=== PATIENT | female | born 1970 | race Caucasian/White ===

== ENCOUNTER 2016-07-18 21:26 | Emergency (ER) | payer OTHER ==
[2016-07-18] MEDS ORDERED: NORMAL SALINE 1000 ML 1,000 ML IV ONE (22:25)
[2016-07-18] MEDS ORDERED: HYDROMORPHONE HCL INJ/PF 2 MG/ML AMPULE IV ONE ×2 (22:25→23:41)
[2016-07-18] MEDS ORDERED: ONDANSETRON HCL INJ/PF 4 MG/2 ML SDV IV ONE (22:25)
--- NOTE | 2016-07-18 22:34 | ER Document Report ---
ED GI/ - General Chief Complaint: Abdominal Pain Stated Complaint: ABDOMINAL PAIN Mode of Arrival: Ambulatory Information source: Patient Notes: This is a 46-year-old female who presents with abdominal pain that began suddenly around 0930 this morning while she was at work (she is a infant lead teacher). The pain got so severe over the next few hours that she was forced to leave school at noon. She has had difficulty having a bowel movement for the past week and so at home she tried stool softeners and enemas with no relief. The pain intensified throughout the day and she began vomiting green material. She denies fevers or chills. No dysuria. She presents in significant distress secondary to diffuse abdominal pain. TRAVEL OUTSIDE OF THE [place] IN LAST 30 DAYS: No - Related Data Allergies/Adverse Reactions: No Known Allergies Allergy (Unverified 07/18/16 21:37) Past Medical History - General Information source: Patient - Social History Smoking Status: Current Every Day Smoker Frequency of alcohol use: None Drug Abuse: None Occupation: school nurse Lives with: Family Family History: Reviewed & Not Pertinent Patient has suicidal ideation: No Patient has homicidal ideation: No - Past Medical History Cardiac Medical History: Reports: Hx Hypertension Renal/ Medical History: Denies: Hx Peritoneal Dialysis Past Surgical History: Reports: Hx Hysterectomy, Hx Neurologic Surgery - For trigeminal neuralgia Review of Systems - Review of Systems Constitutional: Other - Over the past 3-4 weeks patient has had sinus infection and URI and has undergone 3 rounds of antibiotics.. denies: Chills, Fever EENT: No symptoms reported Cardiovascular: No symptoms reported. denies: Chest pain Respiratory: No symptoms reported. denies: Cough, Short of breath Gastrointestinal: See HPI Genitourinary: No symptoms reported. denies: Burning, Dysuria Musculoskeletal: Muscle pain, Other - Frequent muscle cramps today Hematologic/Lymphatic: No symptoms reported Neurological/Psychological: No symptoms reported Physical Exam - Vital signs Vitals: Temp Pulse Resp BP Pulse Ox 98.3 F 91 20 200/102 H 97 07/18/16 21:32 07/18/16 21:32 07/18/16 21:32 07/18/16 21:32 07/18/16 21:32 - Notes Notes: PHYSICAL EXAMINATION: GENERAL: Alert, conversant, morbidly obese adult female who is somewhat ill appearing and in distress secondary to abdominal pain. HEAD: Atraumatic, normocephalic. EYES: Pupils equal round and reactive to light, extraocular movements intact, sclera anicteric, conjunctiva are normal. ENT: nares patent, oropharynx clear without exudates. Moist mucous membranes. NECK: Normal range of motion, supple without lymphadenopathy LUNGS: Breath sounds clear to auscultation bilaterally and equal. No wheezes rales or rhonchi. HEART: Regular rate and rhythm without murmurs ABDOMEN: Morbidly obese. Diffuse tenderness to palpation. Large midline firm, hard mass noted to the lower abdomen. Not reducible. Bowel sounds hypoactive. EXTREMITIES: Normal range of motion, no pitting/edema NEUROLOGICAL: Cranial nerves grossly intact. No gross focal motor or sensory deficits PSYCH: anxious affect Course - Re-evaluation Re-evalutation: 07/18/16 23:00 Patient had some relief with the Dilaudid and is a bit easier to examine at this point. She is morbidly obese. She has diffuse abdominal tenderness to palpation. She has a large lower abdominal mass which is very firm. Patient and family state that this hernia is normally there but is usually soft and not as large. Family states that the area has increased in size just today, with severe pain for the past more than 10 hours. At this point I'm concerned about a possible incarcerated hernia. I have discussed the case with the surgeon induction coordination power engineer for evaluation even though labs and imagining have not yet been done. 07/18/16 23:10 Dr. Dumas evaluating patient in ER, and will discuss with anesthesia given pt 's morbid obesity and comorbities. 07/18/16 23:54 See surgery note. Plan is to transfer to tertiary care center for operative management at this time. 07/19/16 00:35 Dr. Dumas recommends dose of IV toradol to help with non-narcotic pain management. Will also give labetalol for HTN 07/19/16 00:57 Flight crew is here for transport. Patient is stable for transport. - Vital Signs Vital signs: Temp Pulse Resp BP Pulse Ox 98.3 F 91 23 H 176/98 H 92 07/18/16 21:32 07/18/16 21:32 07/19/16 00:46 07/19/16 00:46 07/19/16 00:46 - Laboratory Result Diagrams: 07/18/16 22:50 07/18/16 22:50 Laboratory results interpreted by me: 07/18/16 07/18/16 22:50 22:50 WBC 17.0 H RBC 6.34 H Hgb 16.7 H Hct 51.0 H MCH 26.3 L RDW 17.2 H Seg Neutrophils % 89.9 H Lymphocytes % 5.5 L Absolute Neutrophils 15.3 H Sodium 132.2 L Potassium 3.5 L Chloride 90 L Glucose 196 H - EKG Interpretation by Me Additional EKG results interpreted by me: 07/18/16 23:33 EKG at 2154 straight sinus rhythm with a rate of 96. There are nonspecific ST- T wave changes. No ST elevation. Discharge - Discharge Clinical Impression: Incarcerated hernia of abdominal cavity, Chronically on opiate therapy Morbid obesity Qualifiers: Obesity type: unspecified obesity type Qualified Code(s): E66.01 - Morbid ( severe) obesity due to excess calories Condition: Serious Disposition: [facility]
[2016-07-18 23:06] LABS: ABSOLUTE LYMPHOCYTES (AUTO) 0.9 10^3/uL (0.5-4.7); ABSOLUTE MONOCYTES (AUTO) 0.7 10^3/uL (0.1-1.4); ABSOLUTE NEUT (AUTO) 15.3 10^3/uL (1.7-8.2); BASOPHILS % (AUTO) 0.3 % (0-2); HEMOGLOBIN 16.7 g/dL (12.0-15.5); HGB HCT DIFFERENCE -0.9; LYMPHOCYTES % (AUTO) 5.5 % (13-45); MEAN CORPUSCULAR HEMOGLOBIN 26.3 pg (27.0-33.4); MEAN CORPUSCULAR HGB CONC 32.7 g/dL (32.0-36.0); MEAN CORPUSCULAR VOLUME 81 fl (80-97); MONOCYTES % (AUTO) 4.3 % (3-13); RED BLOOD COUNT 6.34 10^6/uL (3.72-5.28); RED CELL DISTRIBUTION WIDTH 17.2 % (11.5-14.0); SEGMENTED NEUTROPHILS % (AUTO) 89.9 % (42-78)
[2016-07-18 23:16] LABS: ALANINE AMINOTRANSFERASE 31 U/L (9-52); ALBUMIN 4.8 g/dL (3.5-5.0); ALKALINE PHOSPHATASE 98 U/L (38-126); ANION GAP 15 (5-19); ASPARTATE AMINO TRANSFERASE 21 U/L (14-36); BILIRUBIN,DIRECT 0.3 mg/dL (0.0-0.4); BILIRUBIN,TOTAL 0.9 mg/dL (0.2-1.3); BLOOD UREA NITROGEN 20 mg/dL (7-20); CALCIUM 10.2 mg/dL (8.4-10.2); CARBON DIOXIDE 27 mmol/L (22-30); CHLORIDE 90 mmol/L (98-107); CREATININE RESULT 0.61 mg/dL (0.52-1.25); GLUCOSE 196 mg/dL (75-110); LIPASE 110.6 U/L (23-300); POTASSIUM 3.5 mmol/L (3.6-5.0); SODIUM 132.2 mmol/L (137-145); TOTAL PROTEIN 7.8 g/dL (6.3-8.2)
[2016-07-18] MEDS ORDERED: HYDROMORPHONE HCL INJ/PF 2 MG/ML AMPULE ONE (23:25)
[2016-07-18] MEDS ORDERED: AMPICILLIN SOD/SULBACTAM 3 GM VIAL IV ONE (23:41)
[2016-07-18 23:52] LABS: PROTHROMBIN TIME 12.5 SEC (11.4-15.4)
[2016-07-18 23:53] LABS: PARTIAL THROMBOPLASTIN TIME 34.9 SEC (23.5-35.8)
--- NOTE | 2016-07-19 00:26 | PDOC CONSULTATION ---
Consultation Consult Date: 07/19/16 Consult reason:: Incarcerated ventral wall hernia History of Present Illness History of Present Illness: JOSÉ LUIS JAVED is a 46 year old female who presents to the emergency department via ground rescue complaining of a weeks worth of abdominal pain associated with her lower abdominal wall area patient has a known hernia at the site of her previous total abdominal hysterectomy and bilateral salpingo- oophorectomy 2004 for cervical carcinoma. This was complicated by wound dehiscence, closure of abdominal wall with mesh chronic wound issue and also has a history of radiation and chemotherapy. Patient hasn't had a bowel movement in over a week; she is chronically constipated. Pain over the last several days worsened and today approximately 12 hours prior to call the rescue squad she had intense abdominal pain. She was seen in the emergency department where she was found to have a rockhard abdominal wall mass and surgery was consulted. Past Medical History Cardiac Medical History: Reports: Hypertension Infectious Medical History: Reports: Other Infectious History Note: Patient has a history of morbid obesity, sinusitis, hypertension, bleeding diathesis. Also has a history of chronic pain syndrome, bone spurs, trigeminal neuralgia Past Surgical History Past Surgical History: Reports: Hysterectomy, Other - ANGY, BSO thousand 5; hernia repair with mesh 2004 Social History Information Source: Patient - Patient smokes a pack and half cigarettes per day Lives with: Family Smoking Status: Current Every Day Smoker Family History Parental Family History Reviewed: Yes Children Family History Reviewed: Yes Sibling(s) Family History Reviewed.: Yes Medication/Allergy Allergies/Adverse Reactions: No Known Allergies Allergy (Unverified 07/18/16 21:37) Review of Systems Constitutional: ABSENT: chills, fever(s), headache(s), weight gain, weight loss Eyes: ABSENT: visual disturbances Ears: ABSENT: hearing changes Cardiovascular: ABSENT: chest pain, dyspnea on exertion, edema, orthropnea, palpitations Gastrointestinal: PRESENT: as per HPI Neurological: PRESENT: as per HPI Psychiatric: PRESENT: anxiety Physical Exam Vital Signs: Temp Pulse Resp BP Pulse Ox 98.3 F 91 20 200/102 H 97 07/18/16 21:32 07/18/16 21:32 07/18/16 21:32 07/18/16 21:32 07/18/16 21:32 Intake & Output 07/17/16 07/18/16 07/19/16 06:59 06:59 06:59 Weight 143.8 kg General appearance: PRESENT: severe distress Head exam: PRESENT: normocephalic Eye exam: PRESENT: EOMI Neck exam: PRESENT: full ROM Respiratory exam: PRESENT: rhonchi Cardiovascular exam: PRESENT: RRR Pulses: PRESENT: normal carotid pulses, +1 pedal pulses bilateral, +2 pedal pulses bilateral GI/Abdominal exam: PRESENT: other - Morbidly obese; abdominal wall inferior aspect with large 12 x 15 cm hard thin skin mass consistent with incarcerated hernia. Very tender. Completely nonreducible. Results Laboratory Results: 07/18/16 22:50 07/18/16 22:50 07/18/16 07/18/16 22:50 22:50 WBC 17.0 H RBC 6.34 H Hgb 16.7 H Hct 51.0 H MCV 81 MCH 26.3 L MCHC 32.7 RDW 17.2 H Plt Count 233 Seg Neutrophils % 89.9 H Lymphocytes % 5.5 L Monocytes % 4.3 Eosinophils % 0.0 Basophils % 0.3 Absolute Neutrophils 15.3 H Absolute Lymphocytes 0.9 Absolute Monocytes 0.7 Absolute Eosinophils 0.0 Absolute Basophils 0.0 Sodium 132.2 L Potassium 3.5 L Chloride 90 L Carbon Dioxide 27 Anion Gap 15 BUN 20 Creatinine 0.61 Est GFR ( Amer) > 60 Est GFR (Non-Af Amer) > 60 Glucose 196 H Calcium 10.2 Total Bilirubin 0.9 AST 21 ALT 31 Alkaline Phosphatase 98 Total Protein 7.8 Albumin 4.8 Lipase 110.6 Assessment & Plan - Diagnosis (1) Incarcerated hernia of abdominal cavity Is this a current diagnosis for this admission?: YesPlan: Patient has incarcerated large abdominal wall hernia, likely strangulated at this point. He needs emergent exploratory surgery. Given her morbid obesity, sleep difficult airway, chronic pain syndrome, and need for extensive post surgical services, my suggestion is that patient be transferred to [address] [place] [address]. I've discussed this with Dr. Hurtado, anesthesiologist, who agrees with my recommendations. Amy explain this to the patient and patient's mother who have expressed her understanding and agree to proceed. I spoke with Dr. Sagar Magana, general surgeon at [facility] who agrees to accept the patient transfer. We're making arrangements to have the patient flown by helicopter [facility]. Will be a ER to ER transfer. (2) Chronically on opiate therapy Is this a current diagnosis for this admission?: Yes (3) Morbid obesity Qualifiers: Obesity type: unspecified obesity type Qualified Code(s): E66.01 - Morbid (severe) obesity due to excess calories Is this a current diagnosis for this admission?: Yes (4) Smoking Is this a current diagnosis for this admission?: Yes - Time Time Spent: 50 to 70 Minutes Critical Time spent with patient: 15-24 minutes
[2016-07-19] MEDS ORDERED: KETOROLAC TROMETHAMINE INJ/PF 30 MG/1 ML SDV IV ONE (00:29)
[2016-07-19] MEDS ORDERED: HYDRALAZINE HCL INJ/PF 20 MG/1 ML SDV IV ONE (00:29)
[2016-07-19] MEDS ORDERED: LABETALOL HCL INJ 20 MG/4 ML DISP.SYRIN IV ONE (00:30)
[2016-07-19] MEDS ORDERED: HYDROMORPHONE HCL INJ/PF 2 MG/ML AMPULE IV ONE (00:31)
[2016-07-19 00:52] VITALS: BP 176/98
--- NOTE | 2016-07-20 16:04 | EKG REPORT ---
SEVERITY:- ABNORMAL ECG - SINUS RHYTHM FIRST DEGREE AV BLOCK PROBABLE LEFT ATRIAL ABNORMALITY NONSPECIFIC T ABNORMALITIES, ANT-LAT LEADS : Confirmed by: Sandra Cortes MD 20-Jul-2016 16:03:56
--- NOTE | 2016-07-20 16:46 | EKG REPORT ---
SEVERITY:- ABNORMAL ECG - SINUS RHYTHM FIRST DEGREE AV BLOCK PROBABLE LEFT ATRIAL ABNORMALITY BORDERLINE INFERIOR Q WAVES NONSPECIFIC T ABNORMALITIES, ANT-LAT LEADS : Confirmed by: Sandra Cortes MD 20-Jul-2016 16:46:07
== END 2016-07-19 01:15 | disposition short-term general hospital (02) ==
LOC: ER 21:26
DX: K43.6 Other and unspecified ventral hernia with obstruction, without gangrene (principal); E66.01 Morbid (severe) obesity due to excess calories; Z79.891 Long term (current) use of opiate analgesic; R10.9 Unspecified abdominal pain; K59.09 Other constipation; R11.10 Vomiting, unspecified; F17.200 Nicotine dependence, unspecified, uncomplicated; I10 Essential (primary) hypertension; M79.1 Myalgia; Z90.710 Acquired absence of both cervix and uterus; Z90.722 Acquired absence of ovaries, bilateral
CPT/HCPCS: 93005; 96376; 99285; 96374; 96375; 36415; 83690; 85025; 85610; 85730; 80053; 83605; 93010; J1170; J2405; J7030

== ENCOUNTER 2017-11-23 18:48 | Emergency (ER) | payer OTHER ==
[2017-11-23] MEDS ORDERED: NORMAL SALINE 1000 ML 1,000 ML IV ONE (19:29)
[2017-11-23] MEDS ORDERED: METOCLOPRAMIDE HCL INJ/PF 10 MG/2 ML SDV IV ONE (19:29)
--- NOTE | 2017-11-23 19:34 | ER Document Report ---
ED Medical Screen (RME) - General Chief Complaint: Abdominal Pain/ N&V Stated Complaint: ABDOMINAL PAIN Time Seen by Provider: 11/23/17 19:23 Notes: 47-year-old female, comes by EMS for chief complaint of mid to upper sharp abdominal pain with persistent vomiting since this afternoon. History of hernia repair, bowel obstruction, complicated mesh failure with multiple revisions and bowel infection per patient. She states she felt chills, unsure of fever. Denies any cardiovascular history. TRAVEL OUTSIDE OF THE [place] IN LAST 30 DAYS: No - Related Data Allergies/Adverse Reactions: No Known Allergies Allergy (Unverified 07/18/16 21:37) Past Medical History - Past Medical History Cardiac Medical History: Reports: Hx Hypertension Renal/ Medical History: Denies: Hx Peritoneal Dialysis Past Surgical History: Reports: Hx Hysterectomy, Hx Neurologic Surgery - For trigeminal neuralgia, Other - NAGY, BSO thousand 5; hernia repair with mesh 2004 Physical Exam - Vital signs Vitals: Temp Pulse Resp BP Pulse Ox 99.1 F 105 H 18 165/99 H 91 L 11/23/17 19:12 11/23/17 19:12 11/23/17 19:12 11/23/17 19:12 11/23/17 19:12 - Abdominal Tenderness: Tender - Very large strange scar in the mid to lower abdomen, no overt strangulated hernias or rigidity areas, generalized tenderness Course - Re-evaluation Re-evalutation: Patient flushed and somewhat ill-appearing. Borderline pulse oxygenation although patient reports this is normal. Very difficult to evaluate her abdomen , she is holding the emesis bag and appears as if she will vomit. Already was level 2, maintaining this. - Vital Signs Vital signs: Temp Pulse Resp BP Pulse Ox 99.1 F 105 H 18 165/99 H 91 L 11/23/17 19:12 11/23/17 19:12 11/23/17 19:12 11/23/17 19:12 11/23/17 19:12 Doctor's Discharge - Discharge Referrals: VILMA TOTH III, MD [Primary Care Provider] - Follow up as needed
[2017-11-23 19:54] LABS: ABSOLUTE BASOPHILS # (AUTO) 0.1 10^3/uL (0.0-0.2); ABSOLUTE LYMPHOCYTES (AUTO) 0.9 10^3/uL (0.5-4.7); ABSOLUTE MONOCYTES (AUTO) 0.5 10^3/uL (0.1-1.4); ABSOLUTE NEUT (AUTO) 8.5 10^3/uL (1.7-8.2); BASOPHILS % (AUTO) 0.6 % (0-2); EOSINOPHILS % (AUTO) 0.3 % (0-6); HEMATOCRIT 43.5 % (36.0-47.0); HEMOGLOBIN 14.7 g/dL (12.0-15.5); LYMPHOCYTES % (AUTO) 9.1 % (13-45); MEAN CORPUSCULAR HGB CONC 33.8 g/dL (32.0-36.0); MEAN CORPUSCULAR VOLUME 83 fl (80-97); MONOCYTES % (AUTO) 4.8 % (3-13); PLATELET COUNT 234 10^3/uL (150-450); RED BLOOD COUNT 5.25 10^6/uL (3.72-5.28); RED CELL DISTRIBUTION WIDTH 16.5 % (11.5-14.0); SEGMENTED NEUTROPHILS % (AUTO) 85.2 % (42-78); TOTAL CELLS COUNTED % (AUTO) 100 %; WHITE BLOOD COUNT 9.9 10^3/uL (4.0-10.5)
[2017-11-23 20:13] LABS: ALANINE AMINOTRANSFERASE 25 U/L (9-52); ALBUMIN 4.3 g/dL (3.5-5.0); ALKALINE PHOSPHATASE 85 U/L (38-126); ANION GAP 12 (5-19); ASPARTATE AMINO TRANSFERASE 23 U/L (14-36); BILIRUBIN,DIRECT 0.3 mg/dL (0.0-0.4); BILIRUBIN,TOTAL 0.6 mg/dL (0.2-1.3); BLOOD UREA NITROGEN 17 mg/dL (7-20); CARBON DIOXIDE 35 mmol/L (22-30); CHLORIDE 93 mmol/L (98-107); GLUCOSE 157 mg/dL (75-110); LIPASE 50.4 U/L (23-300); POTASSIUM 3.4 mmol/L (3.6-5.0); SODIUM 140.2 mmol/L (137-145); TOTAL PROTEIN 7.8 g/dL (6.3-8.2)
--- NOTE | 2017-11-23 20:21 | RADIOLOGY REPORT (SQ) ---
EXAM DESCRIPTION: ACUTE ABDOMEN SERIES COMPLETED DATE/TIME: 11/23/2017 8:08 pm REASON FOR STUDY: vomiting, hx bowel obstruction COMPARISON: None. NUMBER OF VIEWS: One view. TECHNIQUE: Supine radiographic image of the abdomen acquired. LIMITATIONS: None. FINDINGS: BOWEL GAS PATTERN: There are a few small bowel dilated loops over the left lower quadrant measuring up to 5.5 cm, possible developing obstruction versus focal ileus. CALCIFICATIONS: No suspicious calcifications. SOFT TISSUES: No gross mass or suggestion of organomegaly. HARDWARE: None in the abdomen. BONES: No acute fracture. No worrisome bone lesions. OTHER: No other significant finding. IMPRESSION: There are a few small bowel dilated loops over the left lower quadrant measuring up to 5 .5 cm, possible developing obstruction versus focal ileus. TECHNICAL DOCUMENTATION: JOB ID: [id number] [id number] 2010 [employer]- All Rights Reserved Reading location - IP/workstation name: [email or web address]
[2017-11-23] MEDS ORDERED: MORPHINE SULFATE 10 MG/ML INJ IV PRN ×2 (21:02→22:00)
[2017-11-23] MEDS ORDERED: ONDANSETRON HCL INJ/PF 4 MG/2 ML SDV IV ONE (21:44)
--- NOTE | 2017-11-23 22:03 | ER Document Report ---
ED General - General Chief Complaint: Abdominal Pain >50 Stated Complaint: ABDOMINAL PAIN Time Seen by Provider: 11/23/17 19:23 Notes: Patient is a 47-year-old female with a past medical history of hypertension, diabetes, morbid obesity, prior small bowel obstruction secondary to mesh entanglement status post repair who presents with 24 hours of gradually worsening generalized abdominal pain as well as feculent vomiting. 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 She states shortly into the school day she had gotten the hallway and vomit. She states that she began to develop a cramping, aching, diffuse abdominal pain. Nothing improves or worsens this pain. She states any attempt at even drinking water triggers vomiting. She states this feels exactly the same as to when she had a small bowel obstruction approximately 1 year ago. She denies any fever or constitutional symptoms. She has not discussed with her surgeon or general doctor regarding today's concerns. TRAVEL OUTSIDE OF THE [place] IN LAST 30 DAYS: No - Related Data Allergies/Adverse Reactions: No Known Allergies Allergy (Verified 11/23/17 20:24) Past Medical History - General Information source: Patient - Social History Smoking Status: Never Smoker Frequency of alcohol use: Occasional Drug Abuse: None Lives with: Family Family History: Reviewed & Not Pertinent Patient has suicidal ideation: No Patient has homicidal ideation: No - Past Medical History Cardiac Medical History: Reports: Hx Hypertension Renal/ Medical History: Denies: Hx Peritoneal Dialysis Past Surgical History: Reports: Hx Hysterectomy, Hx Neurologic Surgery - For trigeminal neuralgia, Other - ANGY, BSO thousand 5; hernia repair with mesh 2004 Review of Systems - Review of Systems Notes: Constitutional: Negative for fever. HENT: Negative for sore throat. Eyes: Negative for visual changes. Cardiovascular: Negative for chest pain. Respiratory: Negative for shortness of breath. Gastrointestinal: Positive for abdominal pain and vomiting Genitourinary: Negative for dysuria. Musculoskeletal: Negative for back pain. Skin: Negative for rash. Neurological: Negative for headaches, weakness or numbness. 10 point ROS negative except as marked above and in HPI. Physical Exam - Vital signs Vitals: Temp Pulse Resp BP Pulse Ox 99.1 F 105 H 18 165/99 H 91 L 11/23/17 19:12 11/23/17 19:12 11/23/17 19:12 11/23/17 19:12 11/23/17 19:12 Interpretation: Hypertensive, Tachycardic, Hypoxic - Obesity hypoventilation Notes: PHYSICAL EXAMINATION: GENERAL: Appears uncomfortable and moderately ill HEAD: Atraumatic, normocephalic. EYES: Pupils equal round and reactive to light, extraocular movements intact, sclera anicteric, conjunctiva are normal. ENT: nares patent, oropharynx clear without exudates. Moderately dry mucous membranes. NECK: Normal range of motion, supple without lymphadenopathy LUNGS: Breath sounds clear to auscultation bilaterally and equal. No wheezes rales or rhonchi. HEART: Regular tachycardia without murmurs ABDOMEN: Obese, somewhat distended abdomen. Large scar in the central abdomen. Diffuse mild tenderness throughout without localization EXTREMITIES: Normal range of motion, no pitting or edema. No cyanosis. NEUROLOGICAL: No focal neurological deficits. Moves all extremities spontaneously and on command. PSYCH: Moderately anxious SKIN: Warm, Dry, normal turgor, no rashes or lesions noted. Course - Re-evaluation Re-evalutation: 11/23/17 22:02 Patient presents with signs and symptoms very worrisome for bowel obstruction. She has a history of bowel obstructions in the past secondary to apparently a hernia mesh wrapping around her bowel. She has been having feculent vomiting, severe generalized abdominal pain. Unable to tolerate oral intake. Abdominal x -ray shows findings worrisome for a bowel obstruction. Will obtain CT the abdomen pelvis with IV oral contrast. Will provide IV analgesia, IV fluids, reassess the patient after CT scan is completed. 11/24/17 01:53 CT scan of the abdomen pelvis does show a acute small bowel obstruction with a transition at the jejunum. An NG tube will be placed. IV fluids are ongoing. I have discussed with Dr. Dumas who will assess the patient. - Vital Signs Vital signs: Temp Pulse Resp BP Pulse Ox 99.4 F 102 H 15 141/82 H 84 L 11/24/17 00:34 11/24/17 00:34 11/24/17 01:30 11/24/17 01:30 11/24/17 01:30 - Laboratory Result Diagrams: 11/23/17 19:43 11/23/17 19:43 Laboratory results interpreted by me: 11/23/17 11/23/17 11/23/17 19:43 19:43 23:50 RDW 16.5 H Seg Neutrophils % 85.2 H Lymphocytes % 9.1 L Absolute Neutrophils 8.5 H Potassium 3.4 L Chloride 93 L Carbon Dioxide 35 H Glucose 157 H Urine Blood MODERATE H - Diagnostic Test Radiology reviewed: Reports reviewed Discharge - Discharge Clinical Impression: Small bowel obstruction Nausea and vomiting Qualifiers: Vomiting type: unspecified Vomiting Intractability: non-intractable Qualified Code(s): R11.2 - Nausea with vomiting, unspecified Condition: Fair Referrals: VILMA TOTH III, MD [Primary Care Provider] - Follow up as needed
[2017-11-23] MEDS ORDERED: RINGERS SOLUTION,LACTATED 1,000 ML IV ONE (22:05)
[2017-11-24 00:11] LABS: APPEARANCE,URINE CLEAR; BILIRUBIN,URINE NEGATIVE (NEGATIVE); COLOR,URINE YELLOW; GLUCOSE, URINE NEGATIVE (NEGATIVE); KETONES,URINE NEGATIVE (NEGATIVE); LEUKOCYTE ESTERASE,URINE NEGATIVE (NEGATIVE); NITRITE,URINE NEGATIVE (NEGATIVE); PROTEIN,URINE NEGATIVE (NEGATIVE); URINE SPECIFIC GRAVITY 1.017; UROBILINOGEN,URINE NEGATIVE mg/dL (<2.0)
[2017-11-24] MEDS ORDERED: ONDANSETRON HCL INJ/PF 4 MG/2 ML SDV IV ONE ×2 (00:13→10:27)
[2017-11-24] MEDS: HYDROMORPHONE HCL INJ/PF 2 MG/ML AMPULE IV PRN ×3 (00:27→04:53)
[2017-11-24] MEDS ORDERED: MIDAZOLAM 2 MG/2 ML INJ IV ONE (01:49)
[2017-11-24] MEDS ORDERED: LIDOCAINE 2% JELLY 5 ML TUBE TOP ONE (01:49)
--- NOTE | 2017-11-24 02:00 | RADIOLOGY REPORT (SQ) ---
CT ABDOMEN PELVIS WITH IV CONTRAST HISTORY: Abdominal pain. History of abdominal surgery. Evaluate for small bowel obstruction. COMPARISON: None. TECHNIQUE: CT scan of the abdomen and pelvis. This exam was performed according to our departmental dose-optimization program, which includes automated exposure control, adjustment of the mA and/or kV according to patient size and/or use of iterative reconstruction technique. FINDINGS: Lung bases are clear. No pleural or pericardial effusions. Liver is enlarged, measuring 24 cm with diffuse hepatic steatosis. Spleen is enlarged, measuring 16.5 cm. Cholecystectomy clips are present. Pancreas and adrenal glands are unremarkable. Kidneys are normal without hydronephrosis. No urinary system calculus is seen. Status post hysterectomy. Large ventral hernia is present, with marked thinning of the anterior abdominal wall musculature, containing the majority of the mesentery and bowel loops. Stomach is markedly distended with fluid. The distal duodenum and proximal jejunum are dilated measuring up to 5.4 cm, with the transition point identified in the distal jejunal bowel loops (coronal image 34/102 and axial image 66/91). The distal small bowel loops are decompressed. Small amount of mesenteric free fluid. Surgical chain sutures are seen in a segment of distal small bowel suggesting prior intervention. No free air is seen. No abdominal aortic aneurysm or dissection. Degenerative changes of the spine. Bilateral pars defects at L5-S1 with grade 1 anterolisthesis. IMPRESSION: 1. Small bowel obstruction with a transition point in the jejunum as described above. Small amount of mesenteric free fluid but no free air. 2. Large ventral hernia containing mesenteric fat and bowel loops. 3. Hepatosplenomegaly and hepatic steatosis. Findings were discussed with Dr. Colon at 12:47 AM on 11/24/2017.
[2017-11-24] MEDS ORDERED: PROMETHAZINE HCL INJ 25 MG/1 ML VIAL IM ONE ×3 (04:59→13:52)
[2017-11-24] MEDS ORDERED: HYDROMORPHONE HCL INJ/PF 2 MG/ML AMPULE IV ONE (10:28)
--- NOTE | 2017-11-24 12:00 | PDOC CONSULTATION ---
Consultation Consult Date: 11/24/17 History of Present Illness Admission Date/PCP: VILMA TOTH III, MD History of Present Illness: JOSÉ LUIS JAVED is a 47 year old female, morbidly obese, s/p umbilical herniorraphy and hysterectomy in 2004 with mesh repair. subsequently, she has underwent 4 additional surgeries at [facility] by Dr. Coughlin last year for complicated ventral herniorraphy with mesh. She returns with a hx of vomiting starting yesterday. An NGT was placed with large output. A CT scan of the A/P was done which shows a small bowel obstruction with transition point and large ventral hernia incarcerated. Past Medical History Cardiac Medical History: Reports: Hypertension Past Surgical History Past Surgical History: Reports: Hysterectomy, Other - ANGY, BSO thousand 5; hernia repair with mesh 2004 Social History Lives with: Family Smoking Status: Never Smoker Family History Family History: Reviewed & Not Pertinent Parental Family History Reviewed: No Children Family History Reviewed: No Sibling(s) Family History Reviewed.: No Medication/Allergy Home Medications: Docusate Sodium [Dok] 11/24/17 Fentanyl [Fentanyl] 11/24/17 Gabapentin [Gabapentin] 11/24/17 Hydrochlorothiazide [Hydrochlorothiazide] 11/24/17 Hydromorphone HCl [Hydromorphone HCl] 11/24/17 Sertraline HCl [Sertraline HCl] 11/24/17 Valsartan [Valsartan] 11/24/17 Allergies/Adverse Reactions: No Known Allergies Allergy (Verified 11/23/17 20:24) Physical Exam Vital Signs: Temp Pulse Resp BP Pulse Ox 98.1 F 102 H 12 157/88 H 93 11/24/17 10:37 11/24/17 00:34 11/24/17 10:00 11/24/17 10:00 11/24/17 10:00 Intake & Output 11/23/17 11/24/17 11/25/17 06:59 06:59 06:59 Output Total 1600 Balance -1600 Weight 122 kg General appearance: PRESENT: mild distress Head exam: PRESENT: atraumatic Eye exam: PRESENT: EOMI Mouth exam: PRESENT: neck supple Neck exam: PRESENT: full ROM Respiratory exam: PRESENT: clear to auscultation alison Cardiovascular exam: PRESENT: RRR GI/Abdominal exam: PRESENT: distended, tenderness - in the midabdomen, other - large midline surgical scar Neurological exam: PRESENT: alert, altered Results Laboratory Results: 11/23/17 19:43 11/23/17 19:43 11/23/17 11/23/17 11/23/17 19:43 19:43 19:43 WBC 9.9 RBC 5.25 Hgb 14.7 Hct 43.5 MCV 83 MCH 28.0 MCHC 33.8 RDW 16.5 H Plt Count 234 Seg Neutrophils % 85.2 H Lymphocytes % 9.1 L Monocytes % 4.8 Eosinophils % 0.3 Basophils % 0.6 Absolute Neutrophils 8.5 H Absolute Lymphocytes 0.9 Absolute Monocytes 0.5 Absolute Eosinophils 0.0 Absolute Basophils 0.1 Sodium 140.2 Potassium 3.4 L Chloride 93 L Carbon Dioxide 35 H Anion Gap 12 BUN 17 Creatinine 0.82 Est GFR ( Amer) > 60 Est GFR (Non-Af Amer) > 60 Glucose 157 H Lactic Acid 1.6 Calcium 10.0 Total Bilirubin 0.6 AST 23 ALT 25 Alkaline Phosphatase 85 Total Protein 7.8 Albumin 4.3 Lipase 50.4 Urine Color Urine Appearance Urine pH Ur Specific [place] Urine Protein Urine Glucose (UA) Urine Ketones Urine Blood Urine Nitrite Ur Leukocyte Esterase Urine WBC (Auto) Urine RBC (Auto) 11/23/17 23:50 WBC RBC Hgb Hct MCV MCH MCHC RDW Plt Count Seg Neutrophils % Lymphocytes % Monocytes % Eosinophils % Basophils % Absolute Neutrophils Absolute Lymphocytes Absolute Monocytes Absolute Eosinophils Absolute Basophils Sodium Potassium Chloride Carbon Dioxide Anion Gap BUN Creatinine Est GFR ( Amer) Est GFR (Non-Af Amer) Glucose Lactic Acid Calcium Total Bilirubin AST ALT Alkaline Phosphatase Total Protein Albumin Lipase Urine Color YELLOW Urine Appearance CLEAR Urine pH 5.0 Ur Specific [place] 1.017 Urine Protein NEGATIVE Urine Glucose (UA) NEGATIVE Urine Ketones NEGATIVE Urine Blood MODERATE H Urine Nitrite NEGATIVE Ur Leukocyte Esterase NEGATIVE Urine WBC (Auto) 2 Urine RBC (Auto) 0 Impressions: Acute Abdomen Series 11/23/17 19:28 IMPRESSION: There are a few small bowel dilated loops over the left lower quadrant measuring up to 5.5 cm, possible developing obstruction versus focal ileus. Abdomen/Pelvis CT 11/24/17 00:00 IMPRESSION: 1. Small bowel obstruction with a transition point in the jejunum as described above. Small amount of mesenteric free fluid but no free air. 2. Large ventral hernia containing mesenteric fat and bowel loops. 3. Hepatosplenomegaly and hepatic steatosis. Findings were discussed with Dr. Colon at 12:47 AM on 11/24/2017. Assessment & Plan - Plan Summary Plan Summary: A/ Patient with multiple abdominal surgeries after failed ventral herniorraphy with mesh small bowel obstruction, acute Incarcerated ventral hernia P/ This patient represents a great surgical challange for this hospital and I am not able to provide adequate care to this patient because of her size, previous surgeries, and other unknown surgical issues which might be identified during the surgery (possible fistula) My recommendation is to transfer this patient to Dr. Coughlin at [facility] who has previously operated on this patient for definitive surgical care.
[2017-11-24] MEDS ORDERED: CEFTRIAXONE INJ 1000 MG VIAL IV ONE (12:51)
--- NOTE | 2017-11-24 13:50 | ER Document Report ---
Doctor's Note Notes: 11/24/17 13:48 Summary of situation: A page was placed to surgeons at [facility] in [place] to arrange transfer there. Family requested the patient be transferred. Surgeons do not feel that they can take care of this patient at this facility as she is a very complicated case surgically. Patient's pain is better, but is very nauseated. I spoke with Dr. Feroz Dee at 13:35 [facility] who accepted the patient in transfer. We are going to send the patient from ED to ED in order to get the patient moving. Patient still complains of nausea and will give her some Phenergan IM as well as Reglan IV. Patient was given a gram of Rocephin IV just to cover the possibility of infection.
[2017-11-24] MEDS ORDERED: METOCLOPRAMIDE HCL INJ/PF 10 MG/2 ML SDV IV ONE (13:53)
[2017-11-24] MEDS ORDERED: DIPHENHYDRAMINE HCL 50 MG/ML VIAL IV ONE (13:53)
[2017-11-24 15:11] VITALS: BP 160/98
== END 2017-11-24 15:15 | disposition short-term general hospital (02) ==
LOC: ER 18:48
DX: K56.609 Unspecified intestinal obstruction, unspecified as to partial versus complete obstruction (principal); R10.84 Generalized abdominal pain; R11.2 Nausea with vomiting, unspecified; I10 Essential (primary) hypertension; E11.9 Type 2 diabetes mellitus without complications; E66.01 Morbid (severe) obesity due to excess calories; Z90.710 Acquired absence of both cervix and uterus
CPT/HCPCS: 96376; 99285; 96372; 96361; 96375; 96365; 36415; 83605; 83690; 85025; 80053; 81001; 74022; 74177; J2250; J1200; J2765 ×2; J2270; J1170; J2550; J0696; J2405 ×2; J7030; J7120

== ENCOUNTER 2019-10-24 16:41 | Inpatient (IN) | payer OTHER ==
[2019-10-24 17:07] LABS: ABSOLUTE BASOPHILS # (AUTO) 0.1 10^3/uL (0.0-0.2); ABSOLUTE EOSINOPHILS # (AUTO) 0.2 10^3/uL (0.0-0.6); ABSOLUTE LYMPHOCYTES (AUTO) 1.3 10^3/uL (0.5-4.7); ABSOLUTE MONOCYTES (AUTO) 0.9 10^3/uL (0.1-1.4); ABSOLUTE NEUT (AUTO) 7.1 10^3/uL (1.7-8.2); BASOPHILS % (AUTO) 0.8 % (0-2); EOSINOPHILS % (AUTO) 1.9 % (0-6); HEMATOCRIT 31.1 % (36.0-47.0); HEMOGLOBIN 10.3 g/dL (12.0-15.5); LYMPHOCYTES % (AUTO) 13.4 % (13-45); MEAN CORPUSCULAR HEMOGLOBIN 29.4 pg (27.0-33.4); MEAN CORPUSCULAR VOLUME 89 fl (80-97); MONOCYTES % (AUTO) 9.1 % (3-13); PLATELET COUNT 201 10^3/uL (150-450); RED BLOOD COUNT 3.49 10^6/uL (3.72-5.28); RED CELL DISTRIBUTION WIDTH 16.5 % (11.5-14.0); SEGMENTED NEUTROPHILS % (AUTO) 74.8 % (42-78); TOTAL CELLS COUNTED % (AUTO) 100 %; WHITE BLOOD COUNT 9.5 10^3/uL (4.0-10.5)
[2019-10-24] MEDS ORDERED: ALBUTEROL SULFATE 0.083% NEB 2.5 MG/3 ML AMPUL NEB ONE (17:07)
[2019-10-24] MEDS ORDERED: METHYLPREDNISOLONE INJ 125 MG/2 ML SDV IV ONE ×2 (17:07→20:42)
[2019-10-24 17:08] LABS: INTERNATIONAL RATION (INR) 1.06; PROTHROMBIN TIME 13.8 SEC (11.4-15.4)
[2019-10-24 17:23] LABS: ALBUMIN 3.7 g/dL (3.5-5.0); ALKALINE PHOSPHATASE 68 U/L (38-126); ANION GAP 13 (5-19); ASPARTATE AMINO TRANSFERASE 41 U/L (14-36); BILIRUBIN,DIRECT 0.2 mg/dL (0.0-0.4); BILIRUBIN,TOTAL 0.3 mg/dL (0.2-1.3); BLOOD UREA NITROGEN 76 mg/dL (7-20); CALCIUM 7.9 mg/dL (8.4-10.2); CARBON DIOXIDE 21 mmol/L (22-30); CHLORIDE 95 mmol/L (98-107); GLUCOSE 119 mg/dL (75-110); POTASSIUM 4.5 mmol/L (3.6-5.0); TOTAL PROTEIN 6.5 g/dL (6.3-8.2)
[2019-10-24 17:49] LABS: ARTERIAL BLOOD BASE EXCESS -7.3 mmol/L; ARTERIAL BLOOD FIO2 50%; ARTERIAL BLOOD H2CO3 1.61 mmol/L (1.05-1.35); ARTERIAL BLOOD HCO3 20.6 mmol/L (20-24); ARTERIAL BLOOD O2 SATURATION 98.3 % (94-98); ARTERIAL BLOOD PCO2 53.4 mmHg (35-45); ARTERIAL BLOOD PH 7.21 (7.35-7.45); ARTERIAL BLOOD PO2 142.5 mmHg (80-100); ARTERIAL BLOOD TOTAL CO2 22.3 mmol/L (21-25)
[2019-10-24] MEDS ORDERED: NORMAL SALINE 1000 ML 1,000 ML IV ONE (17:52)
--- NOTE | 2019-10-24 17:52 | RADIOLOGY REPORT (SQ) ---
EXAM DESCRIPTION: CHEST SINGLE VIEW IMAGES COMPLETED DATE/TIME: 10/24/2019 5:39 pm REASON FOR STUDY: altered mental status COMPARISON: None. EXAM PARAMETERS: NUMBER OF VIEWS: One view. TECHNIQUE: Single frontal radiographic view of the chest acquired. RADIATION DOSE: NA LIMITATIONS: None. FINDINGS: LUNGS AND PLEURA: Low lung volumes limits the examination. The perihilar markings are mi ldly prominent in appearance, may be on the basis of edema or infiltrates. No acute pulmonary consol idation. No pneumothorax. MEDIASTINUM AND HILAR STRUCTURES: No masses. Contour normal. HEART AND VASCULAR STRUCTURES: Cardiomegaly. Normal vasculature. BONES: No acute findings. HARDWARE: None in the chest. OTHER: No other significant finding. IMPRESSION: 1. No acute pulmonary consolidation. 2. The perihilar markings are mildly prominent in appearance may represent edema or infiltrates. 3. Cardiomegaly. TECHNICAL DOCUMENTATION: JOB ID: [id number] [employer]- All Rights Reserved Reading location - IP/workstation name: [email or web address]
--- NOTE | 2019-10-24 17:59 | RADIOLOGY REPORT (SQ) ---
EXAM DESCRIPTION: FOOT BILATERAL 3 VIEWS IMAGES COMPLETED DATE/TIME: 10/24/2019 5:39 pm REASON FOR STUDY: fall, pain with walking COMPARISON: None. NUMBER OF VIEWS: Three views. TECHNIQUE: AP, lateral and oblique radiographic images acquired of the right and left foot. LIMITATIONS: None. FINDINGS: MINERALIZATION: Normal. BONES: Slightly displaced fracture mid shaft proximal phalanx left fifth toe. Soft tissue swelling. Calcaneal spurs. JOINTS: No effusions. SOFT TISSUES: No soft tissue swelling. No foreign body. OTHER: No other significant finding. IMPRESSION: 1. Slightly displaced fracture mid shaft proximal phalanx, left fifth toe. TECHNICAL DOCUMENTATION: JOB ID: [id number] [employer]- All Rights Reserved Reading location - IP/workstation name: [email or web address]
--- NOTE | 2019-10-24 18:06 | ER Document Report ---
ED General - General Chief Complaint: Respiratory Distress Stated Complaint: WEAKNESS Primary Care Provider: VILMA TOTH III, MD [Primary Care Provider] - Follow up as needed Notes: Patient brought to the emergency department via EMS for confusion and falls. Patient apparently fell 2 days ago and complained that her right foot and left foot were both injured. Currently states that the right foot is more painful than the left foot. States that she started having tremors last evening and she did not know what is causing them. States that today she thinks her family called 911 because she was having tremors but she is not certain. Report from EMS and family states that she has been having increasing confusion over the past several days and when EMS arrived she was hypotensive at 82/49 and hypoxic in the mid 80s. Does not wear oxygen at home and quit smoking 3 years ago. Patient denies pain anywhere aside from her bilateral feet. Denies any nausea, vomiting, diarrhea or cough. Denies any shortness of breath as well. TRAVEL OUTSIDE OF THE [place] IN LAST 30 DAYS: No - Related Data Allergies/Adverse Reactions: No Known Allergies Allergy (Verified 10/24/19 16:55) Past Medical History - General Information source: Patient, Emergency Med Personnel - Social History Smoking Status: Former Smoker Chew tobacco use (# tins/day): No Frequency of alcohol use: None Drug Abuse: None Family History: CVA - Mother Patient has homicidal ideation: No - Past Medical History Cardiac Medical History: Reports: Hx Hypertension Renal/ Medical History: Denies: Hx Peritoneal Dialysis Past Surgical History: Reports: Hx Hysterectomy, Hx Neurologic Surgery - For trigeminal neuralgia, Other - ANGY, BSO thousand 5; hernia repair with mesh 2004 Review of Systems - Review of Systems Constitutional: See HPI, Weakness. denies: Chills, Diaphoresis, Malaise EENT: No symptoms reported Cardiovascular: No symptoms reported. denies: Chest pain, Heart racing Respiratory: See HPI - Hypoxic for EMS. denies: Hurts to breathe, Short of breath Gastrointestinal: No symptoms reported Musculoskeletal: See HPI - Feet pain after fall. Neurological/Psychological: See HPI - Tremors., Tremor -: Yes All other systems reviewed and negative Physical Exam - Vital signs Vitals: Resp Pulse Ox 21 H 88 L 10/24/19 16:49 10/24/19 16:49 Interpretation: Tachycardic, Hypoxic - Notes Notes: GENERAL: Awake, but intermittently confused, intermittently jumps and twitches. Orbitally obese HEAD: Normocephalic, atraumatic EYES: Pupils equal, round and reactive to light, extraocular movements intact. ENT: Oral mucosa moist, tongue midline. NECK: Full range of motion, supple, trachea midline. LUNGS: Good air movement with inspiration however she does have expiratory wheezing, intermittently hypoxic on 5 L via nasal cannula even with good Plath that ranges between 81 and at best 93% however she frequently does not have a good waveform. no rales or rhonchi, no respiratory distress. HEART: Regular rate and rhythm, no murmurs, gallops, rubs. ABDOMEN: Soft, nontender, nondistended, bowel sounds present in all 4 quadrants. EXTREMITIES: Moves all 4 extremities spontaneously, trace pitting edema to the feet,, radial and dorsalis pedis pulses 2/4 bilaterally. No cyanosis. Ecchymoses noted to the base of the fifth metatarsal on the left foot, tender to palpation. Right foot has shifting tenderness to palpation diffusely. NEUROLOGICAL: Able to hold a conversation but does get distracted, has difficulty reporting her home medical history, is oriented to person place and time but does not have a good understanding of her situation, no slurred speech, no facial droop, 5 out of 5 muscle strength. Intermittent tremors and twitching. SKIN: Warm, Dry, no rashes noted. Course - Re-evaluation Re-evalutation: 10/24/19 18:15 Patient was placed on BiPAP due to her hypoxia. X-ray of the foot does show a fracture of the left fifth toe. This will be gricelda taped. CBC does not show any leukocytosis, there is anemia with hemoglobin 10.3, platelets are normal, INR unremarkable, ABG shows respiratory acidosis with a pH of 7.21 and a PCO2 of 53.4, there is likely partial metabolic involvement as well given this degree of acidosis for that fairly low degree of CO2 retention. CMP shows hyponatremia with a sodium of 129.4, potassium is normal, there is marketed renal failure with a BUN of 76 and a creatinine of 8.29, initial lactic acid is normal, initial glucose minimally elevated at 119, patient does not meet sepsis criteria. Tovar catheter will be placed to assess for urinary retention and degree of urine output and help with assessing kidney function. Discussed case with Dr. Arndt who agrees to admit the patient to his service on the IMCU. 10/24/19 18:15 - Vital Signs Vital signs: Temp Pulse Resp BP Pulse Ox 99.5 F 106 H 15 111/96 H 96 10/24/19 16:55 10/24/19 16:55 10/24/19 17:07 10/24/19 17:01 10/24/19 17:07 - Laboratory Result Diagrams: 10/24/19 16:52 10/24/19 16:52 Laboratory results interpreted by me: 10/24/19 10/24/19 10/24/19 16:52 16:52 16:55 RBC 3.49 L Hgb 10.3 L Hct 31.1 L RDW 16.5 H Carbonic Acid ABG pH ABG pCO2 ABG pO2 ABG O2 Saturation Sodium 129.4 L Chloride 95 L Carbon Dioxide 21 L BUN 76 H Creatinine 8.29 H Est GFR ( Amer) 6 L Est GFR (MDRD) Non-Af 5 L Glucose 119 H POC Glucose 122 H Calcium 7.9 L AST 41 H 10/24/19 17:16 RBC Hgb Hct RDW Carbonic Acid 1.61 H ABG pH 7.21 L ABG pCO2 53.4 H ABG pO2 142.5 H ABG O2 Saturation 98.3 H Sodium Chloride Carbon Dioxide BUN Creatinine Est GFR ( Amer) Est GFR (MDRD) Non-Af Glucose POC Glucose Calcium AST - EKG Interpretation by Me Additional EKG results interpreted by me: 10/24/19 18:16 EKG shows sinus tachycardia at a rate of 103, normal axis, normal intervals, no ST segment elevations or depressions, T wave inversions normal in V1, poor R w ave progression per my interpretation. Critical Care Note - Critical Care Note Total time excluding time spent on procedures (mins): 45 Discharge - Discharge Clinical Impression: Hypoxia, Confusion Acute renal failure Qualifiers: Acute renal failure type: unspecified Qualified Code(s): N17.9 - Acute kidney failure, unspecified Condition: Fair Disposition: ADMITTED INPATIENT Admitting Provider: Hair (Hospitalist) Unit Admitted: IMCU Referrals: VILMA TOTH III, MD [Primary Care Provider] - Follow up as needed
[2019-10-24 19:20] LABS: APPEARANCE,URINE SLIGHTLY-CLOUDY; BILIRUBIN,URINE NEGATIVE (NEGATIVE); COLOR,URINE YELLOW; GLUCOSE, URINE NEGATIVE (NEGATIVE); KETONES,URINE NEGATIVE (NEGATIVE); PROTEIN,URINE 30 mg/dL (NEGATIVE); URINE SPECIFIC GRAVITY 1.017; UROBILINOGEN,URINE NEGATIVE mg/dL (<2.0)
[2019-10-24] MEDS ORDERED: ACETAMINOPHEN 325 MG TABLET PO PRN (20:32)
[2019-10-24] MEDS ORDERED: DOPAMINE HCL/DEXTROSE 5%-WATER 800 MG/250 ML RTUINJ IV PRN (20:32)
[2019-10-24] MEDS ORDERED: MAGNESIUM HYDROXIDE SUSP 30 ML UDCUP PO PRN (20:32)
[2019-10-24] MEDS ORDERED: ACETAMINOPHEN 650 MG SUPP.RECT PR PRN (20:32)
[2019-10-24] MEDS ORDERED: GUAIFENESIN SYRP 200 MG/10 ML UDC PO PRN (20:42)
[2019-10-24] MEDS ORDERED: MAG HYDROX/AL HYDROX/SIMETH SUSP 30 ML UDCUP PO PRN (20:42)
[2019-10-24] MEDS ORDERED: LORAZEPAM INJ 2 MG/1 ML VIAL IV PRN (20:42)
[2019-10-24] MEDS ORDERED: PROMETHAZINE HCL INJ 25 MG/1 ML VIAL IV PRN (20:42)
[2019-10-24] MEDS ORDERED: MORPHINE SULFATE 10 MG/ML INJ IV PRN ×2 (20:42→21:18)
[2019-10-24] MEDS ORDERED: CEFEPIME 2 GM/D5W RTU 2 GM/50 ML RTUPB IV SCH (22:00)
[2019-10-24] MEDS ORDERED: CEFEPIME 2 GM/D5W RTU 2 GM/50 ML RTUPB IV ONE (22:51)
[2019-10-24] MEDS: CEFEPIME HCL 2 GM in DEXTROSE 5%-WATER 50 ML IV SCH (22:54)
[2019-10-24] MEDS: METHYLPREDNISOLONE INJ 40 MG/1 ML SDV IV SCH (23:53)
[2019-10-25] MEDS: LEVALBUTEROL HCL NEB 1.25 MG/3 ML AMPUL NEB SCH ×3 (00:04→16:14)
[2019-10-25] MEDS: IPRATROPIUM BROMIDE 0.02% NEB 0.5 MG/2.5 ML AMPUL NEB SCH ×3 (00:04→16:14)
--- NOTE | 2019-10-25 00:42 | PDOC H&P ---
History of Present Illness Admission Date/PCP: 10/24/2019 17:07 VILMA TOTH III, MD Patient complains of: Altered mental status (confusion) History of Present Illness: JOSÉ LUIS JAVED is a 49 year old female who presented to the emergency room via EMS, with a 2-day history of confusion. Patient was noted by her family to have progressively worsening mental confusion over the course of the last 2 days. The patient is confused and is not certain as to why she is in the emergency room. She admits falling 2 days ago and injuring both her of her feet which are still painful. She further admits having developed intermittent tremors of unknown etiology. The patient's complaints are somewhat uncertain as to reliability due to her acute confusion evidenced by variability in detail when the complaints are revisited. In the emergency room the patient was found to be hypoxic, hypotensive and acutely confused. She was treated via the sepsis protocol and admitted to the hospital for further evaluation treatment. Past Medical History Past Medical History: Due to the patient's acute encephalopathy she is unable to provide reliable information to her history. Therefore past medical history, past surgical history, social history and family medical history are obtained from the best available reliable source. Cardiac Medical History: Reports: Hypertension Denies: Coronary Artery Disease, Myocardial Infarction Pulmonary Medical History: Denies: Asthma, Chronic Obstructive Pulmonary Disease (COPD), Tuberculosis EENT Medical History: Reports: Other - Sinusitis Denies: Cataracts, Ears - Hearing aids Neurological Medical History: Reports: Other - Trigeminal neuralgia Denies: Multiple Sclerosis, Seizures Endocrine Medical History: Reports: Obesity Denies: Diabetes Mellitus Type 1, Diabetes Mellitus Type 2, Hyperthyroidism, Hypothyroidism Renal/ Medical History: Denies: Chronic Kidney Disease, Nephrolithiasis Malignancy Medical History: Reports: None GI Medical History: Reports: Other - Enteric fistula, small bowel obstruction, large ventral hernia Denies: Cirrhosis, Hepatitis GI History Note: Hepatic steatosis with hepatosplenomegaly Musculoskeltal Medical History: Reports: Other - Chronic pain syndrome-opioid dependent Denies: Fibromyalgia, Gout Skin Medical History: Denies: Eczema, Psoriasis Psychiatric Medical History: Reports: Tobacco Dependency Denies: Alcohol Dependency, Substance Abuse Traumatic Medical History: Reports: None Hematology: Denies: Anemia, Bleeding Tendencies Infectious Medical History: Reports: None Past Surgical History Past Surgical History: Due to the patient's acute encephalopathy she is unable to provide reliable information to her history. Therefore past medical history, past surgical history, social history and family medical history are obtained from the best available reliable source. Past Surgical History: Reports: Herniorrhaphy - Ventral herniorrhaphies x5 with mesh and persistent ventral hernia, Hysterectomy - TAHBSO Social History Information Source: Emergency Med Personnel, [facility] Records Lives with: Family Smoking Status: Former Smoker Electronic Cigarette use?: No Frequency of Alcohol Use: None Hx Recreational Drug Use: No Drugs: None Hx Prescription Drug Abuse: No Past Social History Note: Due to the patient's acute encephalopathy she is unable to provide reliable in formation to her history. Therefore past medical history, past surgical history, social history and family medical history are obtained from the best available reliable source. Family History Family History: CVA - Mother Family History: Due to the patient's acute encephalopathy she is unable to provide reliable information to her history. Therefore past medical history, past surgical history, social history and family medical history are obtained from the best available reliable source. Parental Family History Reviewed: Yes Children Family History Reviewed: No Sibling(s) Family History Reviewed.: Yes Medication/Allergy Home Medications: Docusate Sodium [Dok] 11/24/17 Fentanyl 11/24/17 Gabapentin 11/24/17 Hydrochlorothiazide 11/24/17 Hydromorphone HCl 11/24/17 Sertraline HCl 11/24/17 Valsartan 11/24/17 Allergies/Adverse Reactions: No Known Allergies Allergy (Verified 10/24/19 16:55) Review of Systems ROS unobtainable: Due to mental status - Acute encephalopathy Physical Exam Vital Signs: Temp Pulse Resp BP Pulse Ox 99.5 F 106 H 20 114/89 H 96 10/24/19 16:55 10/24/19 16:55 10/24/19 18:01 10/24/19 18:01 10/24/19 17:07 Intake & Output 10/22/19 10/23/19 10/24/19 23:59 23:59 23:59 Weight 130 kg General appearance: PRESENT: no acute distress, morbidly obese, other - On BiPAP at the time of my evaluation Head exam: PRESENT: atraumatic, normocephalic Eye exam: PRESENT: conjunctiva pink. ABSENT: conjunctival injection, scleral icterus Ear exam: PRESENT: normal external ear exam. ABSENT: bleeding, drainage Mouth exam: PRESENT: dry mucosa, neck supple Neck exam: ABSENT: thyromegaly, tracheal deviation Respiratory exam: PRESENT: prolonged expiratory phas - Mildly prolonged expiratory phase in all lainez, symmetrical, wheezes - Expiratory wheezes in all lainez, other - On BiPAP for my exam Cardiovascular exam: PRESENT: RRR. ABSENT: clicks, gallop, rubs Pulses: PRESENT: normal radial pulses, normal dorsalis pedis pul Vascular exam: PRESENT: normal capillary refill. ABSENT: pallor GI/Abdominal exam: PRESENT: normal bowel sounds, soft, other - Large ventral hernia noted Rectal exam: PRESENT: deferred Extremities exam: PRESENT: joint swelling - Moderate swelling of the right medial and lateral ankle with tenderness to palpation, tenderness - Left fifth toe with tenderness to palpation, +1 edema - Bilateral pretibial edema. ABSENT: pedal edema Musculoskeletal exam: ABSENT: deformity, dislocation Neurological exam: PRESENT: alert, altered - Confused and mildly disoriented, oriented to person, oriented to place, CN II-XII grossly intact. ABSENT: oriented to time, oriented to situation, motor sensory deficit - To gross exam Psychiatric exam: PRESENT: anxious, normal mood, other - Confused Skin exam: PRESENT: dry, intact, warm. ABSENT: jaundice, rash, urticaria Results Laboratory Results: 10/24/19 16:52 10/24/19 16:52 10/24/19 10/24/19 10/24/19 16:52 16:52 16:52 WBC 9.5 RBC 3.49 L Hgb 10.3 L Hct 31.1 L MCV 89 MCH 29.4 MCHC 33.0 RDW 16.5 H Plt Count 201 Seg Neutrophils % 74.8 Carbonic Acid HCO3/H2CO3 Ratio ABG pH ABG pCO2 ABG pO2 ABG HCO3 ABG O2 Saturation ABG Base Excess FiO2 Sodium 129.4 L Potassium 4.5 Chloride 95 L Carbon Dioxide 21 L Anion Gap 13 BUN 76 H Creatinine 8.29 H Est GFR ( Amer) 6 L Glucose 119 H Lactic Acid 1.1 Calcium 7.9 L Total Bilirubin 0.3 AST 41 H Alkaline Phosphatase 68 Total Protein 6.5 Albumin 3.7 Urine Color Urine Appearance Urine pH Ur Specific [place] Urine Protein Urine Glucose (UA) Urine Ketones Urine Blood Urine RBC (Auto) 10/24/19 10/24/19 10/24/19 17:16 18:00 18:48 WBC RBC Hgb Hct MCV MCH MCHC RDW Plt Count Seg Neutrophils % Carbonic Acid 1.61 H HCO3/H2CO3 Ratio 12:1 ABG pH 7.21 L ABG pCO2 53.4 H ABG pO2 142.5 H ABG HCO3 20.6 ABG O2 Saturation 98.3 H ABG Base Excess -7.3 FiO2 50% Sodium Potassium Chloride Carbon Dioxide Anion Gap BUN Creatinine Est GFR ( Amer) Glucose Lactic Acid 1.7 Calcium Total Bilirubin AST Alkaline Phosphatase Total Protein Albumin Urine Color YELLOW Urine Appearance SLIGHTLY-CLOUDY Urine pH 5.0 Ur Specific [place] 1.017 Urine Protein 30 H Urine Glucose (UA) NEGATIVE Urine Ketones NEGATIVE Urine Blood NEGATIVE Urine RBC (Auto) 1 Impressions: Chest X-Ray 10/24/19 16:51 IMPRESSION: 1. No acute pulmonary consolidation. 2. The perihilar markings are mildly prominent in appearance may represent edema or infiltrates. 3. Cardiomegaly. Foot X-Ray 10/24/19 17:08 IMPRESSION: 1. Slightly displaced fracture mid shaft proximal phalanx, left fifth toe. Assessment and Plan - Diagnosis (1) Acute respiratory failure with hypoxia and hypercapnia Is this a current diagnosis for this admission?: Yes (2) Acute encephalopathy Is this a current diagnosis for this admission?: Yes (3) Acute kidney injury (nontraumatic) Is this a current diagnosis for this admission?: Yes (4) Hypotension (arterial) Qualifiers: Hypotension type: unspecified hypotension type Qualified Code(s): I95.9 - Hypotension, unspecified Is this a current diagnosis for this admission?: Yes (5) SIRS (systemic inflammatory response syndrome) Is this a current diagnosis for this admission?: Yes (6) Fracture of fifth toe, left, closed Qualifiers: Encounter type: initial encounter Qualified Code(s): S92.502A - Displaced unspecified fracture of left lesser toe(s), initial encounter for closed fracture Is this a current diagnosis for this admission?: Yes (7) Pain and swelling of right ankle Is this a current diagnosis for this admission?: Yes (8) Morbid obesity Is this a current diagnosis for this admission?: Yes - Plan Summary Summary: Patient will be admitted to [facility] where she will receive routine supportive and symptomatic cares. She will be maintained on BiPAP or other supplemental oxygen to maintain an adequate oxygen saturation level. She will receive high-volume IV fluids utilizing lactated Ringer solution. An orthopedic consultation with Dr. Boyle will be obtained. IV cefepime 2 g every 12 hours will be given empirically pending culture results. She will receive Ativan 1 mg IV every 4 hours as needed for anxiety or restlessness. She will receive morphine sulfate 2 to 4 mg IV every 2 hours as needed for pain control. Serial lactic acid levels will be obtained per the sepsis protocol. CBCs, metabolic profiles, magnesium levels and additional laboratory and/or radiographic evaluations will be obtained as needed. Patient will be on a cardiac diet. - Time Time Spent with patient: 15-24 minutes Medications reviewed and adjusted accordingly: Yes Anticipated Discharge Disposition: Home with Home Health Anticipated Discharge: when bed available - Undetermined - Inpatient Certification Based on my medical assessment, after consideration of the patient's comorbidities, presenting symptoms, or acuity I expect that the services needed warrant INPATIENT care.: Yes I certify that my determination is in accordance with my understanding of Medicare's requirements for reasonable and necessary INPATIENT services [42 CFR 412.3e].: Yes Medical Necessity: Need Close Monitoring Due to Risk of Patient Decompensation, Need For IV Fluids, Need For Continuous Telemetry Monitoring, Need for Nebulizer Therapy and Monitoring of Response, Need for Neurological Checks, Need for IV Antibiotics, Risk of Complication if Not Cared For in Hospital
[2019-10-25] MEDS: RINGERS SOLUTION,LACTATED 1,000 ML IV PRN ×2 (00:49→04:57)
[2019-10-25 03:24] LABS: INTERNATIONAL RATION (INR) 1.05; PROTHROMBIN TIME 13.7 SEC (11.4-15.4)
[2019-10-25 03:28] LABS: ALBUMIN 3.4 g/dL (3.5-5.0); ALKALINE PHOSPHATASE 67 U/L (38-126); ANION GAP 14 (5-19); ASPARTATE AMINO TRANSFERASE 36 U/L (14-36); BILIRUBIN,DIRECT 0.1 mg/dL (0.0-0.4); BILIRUBIN,TOTAL 0.3 mg/dL (0.2-1.3); BLOOD UREA NITROGEN 78 mg/dL (7-20); CALCIUM 7.5 mg/dL (8.4-10.2); CARBON DIOXIDE 19 mmol/L (22-30); CHLORIDE 97 mmol/L (98-107); GLUCOSE 199 mg/dL (75-110); TOTAL PROTEIN 6.2 g/dL (6.3-8.2)
[2019-10-25 03:38] LABS: POTASSIUM 4.8 mmol/L (3.6-5.0)
[2019-10-25] MEDS: PANTOPRAZOLE SODIUM 40 MG TABLET.DR PO SCH ×2 (05:22→19:35)
[2019-10-25] MEDS: METHYLPREDNISOLONE INJ 40 MG/1 ML SDV IV SCH ×2 (05:23→14:54)
[2019-10-25 06:44] LABS: ARTERIAL BLOOD BASE EXCESS -7.4 mmol/L; ARTERIAL BLOOD H2CO3 1.76 mmol/L (1.05-1.35); ARTERIAL BLOOD HCO3 21.2 mmol/L (20-24); ARTERIAL BLOOD O2 SATURATION 84.7 % (94-98); ARTERIAL BLOOD PCO2 58.4 mmHg (35-45); ARTERIAL BLOOD PO2 61.3 mmHg (80-100)
[2019-10-25 06:54] LABS: ARTERIAL BLOOD FIO2 32%
[2019-10-25 06:56] LABS: ARTERIAL BLOOD PH 7.18 (7.35-7.45)
[2019-10-25 08:05] LABS: ARTERIAL BLOOD BASE EXCESS -7.4 mmol/L; ARTERIAL BLOOD H2CO3 1.88 mmol/L (1.05-1.35); ARTERIAL BLOOD HCO3 21.6 mmol/L (20-24); ARTERIAL BLOOD PCO2 62.4 mmHg (35-45); ARTERIAL BLOOD PO2 47.7 mmHg (80-100); ARTERIAL BLOOD TOTAL CO2 23.5 mmol/L (21-25)
--- NOTE | 2019-10-25 08:05 | RADIOLOGY REPORT (SQ) ---
EXAM DESCRIPTION: XR ANKLE 3 OR MORE VIEWS CLINICAL HISTORY: 49 years, Female, Right ankle pain status post fall COMPARISON: None. TECHNIQUE: Three views of the right ankle. FINDINGS: Oblique views demonstrate subtle vertical lucency in the distal fibular shaft which is probably artifact from normal variation of lines in the bone. Finding not confirmed on AP or lateral views. No evidence for septic. IMPRESSION: Lucency seen in one view of the distal fibula is more likely not a fracture. No definite fracture is seen.
[2019-10-25 08:40] LABS: ARTERIAL BLOOD FIO2 32%
[2019-10-25 08:41] LABS: ARTERIAL BLOOD PH 7.16 (7.35-7.45)
[2019-10-25] MEDS: BUDESONIDE NEB 0.5 MG/2 ML AMPUL NEB SCH ×2 (09:33→19:32)
--- NOTE | 2019-10-25 10:07 | EKG REPORT ---
SEVERITY:- BORDERLINE ECG - SINUS TACHYCARDIA BORDERLINE T ABNORMALITIES, ANT-LAT LEADS : Confirmed by: Sandra Cortes MD 25-Oct-2019 10:06:58
--- NOTE | 2019-10-25 10:44 | PDOC CONSULTATION ---
Consultation Consult Date: 10/25/19 Provider Consulted: MALINDA SEWELL History of Present Illness Admission Date/PCP: 10/24/19 19:25 VILMA TOTH III, MD Patient complains of: Bilateral foot/ankle pain History of Present Illness: JOSÉ LUIS JAVED is a 49 year old female who presented to the hospital after 2 days of increased confusion. Discussing with the patient she apparently sustained a fall a couple days ago without definitive known mechanism of injury. She does state the pain is worse on the right as compared to the fifth toe on the left. Has pain with attempted weightbearing. Was on a fentanyl patch which caused her confusion and now she has increased pain. Pain 3/5. Denies numbness or tingling. Complete HPI limited secondary to patient's mental status. Past Medical History Cardiac Medical History: Reports: Hypertension Denies: Coronary Artery Disease, Myocardial Infarction Pulmonary Medical History: Denies: Asthma, Chronic Obstructive Pulmonary Disease (COPD), Tuberculosis EENT Medical History: Reports: Other - Sinusitis Denies: Cataracts, Ears - Hearing aids Neurological Medical History: Reports: Other - Trigeminal neuralgia Denies: Multiple Sclerosis, Seizures Endocrine Medical History: Reports: Obesity Denies: Diabetes Mellitus Type 1, Diabetes Mellitus Type 2, Hyperthyroidism, Hypothyroidism Renal/ Medical History: Denies: Chronic Kidney Disease, Nephrolithiasis Malignancy Medical History: Reports: None GI Medical History: Reports: Other - Enteric fistula, small bowel obstruction, large ventral hernia Denies: Cirrhosis, Hepatitis Musculoskeltal Medical History: Reports: Other - Chronic pain syndrome-opioid dependent Denies: Fibromyalgia, Gout Skin Medical History: Denies: Eczema, Psoriasis Psychiatric Medical History: Reports: Tobacco Dependency Denies: Alcohol Dependency, Depression, Substance Abuse Traumatic Medical History: Reports: None Hematology: Reports: Other - Sinusitis Denies: Anemia, Bleeding Tendencies Infectious Medical History: Reports: None Past Surgical History Past Surgical History: Reports: Herniorrhaphy - Ventral herniorrhaphies x5 with mesh and persistent ventral hernia, Hysterectomy - TAHBSO, Other - ANGY, BSO thousand 5; hernia repair with mesh 2004 Social History Lives with: Family Smoking Status: Former Smoker Cigarettes Packs Per Day: 2 Electronic Cigarette use?: No Number of Years Smokin Last Time Smoked: 2017 Frequency of Alcohol Use: None Hx Recreational Drug Use: No Drugs: None Hx Prescription Drug Abuse: No Family History Family History: CVA - Mother Parental Family History Reviewed: No Children Family History Reviewed: No Sibling(s) Family History Reviewed.: No Medication/Allergy Home Medications: Docusate Sodium [Dok] 11/24/17 Fentanyl 11/24/17 Gabapentin 11/24/17 Hydrochlorothiazide 11/24/17 Hydromorphone HCl 11/24/17 Sertraline HCl 11/24/17 Valsartan 11/24/17 Allergies/Adverse Reactions: No Known Allergies Allergy (Verified 10/24/19 16:55) Review of Systems ROS unobtainable: Due to mental status Constitutional: ABSENT: chills, fever(s), headache(s), weight gain, weight loss Eyes: ABSENT: visual disturbances Ears: ABSENT: hearing changes Cardiovascular: ABSENT: chest pain, dyspnea on exertion, edema, orthropnea, palpitations Respiratory: PRESENT: other - Wheezing with shortness of breath.. ABSENT: cough, hemoptysis Gastrointestinal: ABSENT: abdominal pain, constipation, diarrhea, hematemesis, hematochezia, nausea, vomiting Genitourinary: ABSENT: dysuria, hematuria Musculoskeletal: PRESENT: as per HPI Integumentary: ABSENT: rash, wounds Neurological: PRESENT: as per HPI, confusion, weakness. ABSENT: abnormal gait, abnormal speech, dizziness, focal weakness, syncope Psychiatric: ABSENT: anxiety, depression, homidical ideation, suicidal ideation Endocrine: ABSENT: cold intolerance, heat intolerance, menstrual abnormalities, polydipsia, polyuria Hematologic/Lymphatic: ABSENT: easy bleeding, easy bruising, lymphadenopathy Physical Exam Vital Signs: Temp Pulse Resp BP Pulse Ox 97.6 F 69 12 110/60 99 10/25/19 07:56 10/25/19 09:33 10/25/19 09:33 10/25/19 07:56 10/25/19 09:33 Intake & Output 10/24/19 10/25/19 10/26/19 06:59 06:59 06:59 Intake Total 2750 Output Total 1400 Balance 1350 Weight 129 kg General appearance: PRESENT: no acute distress, well-developed, well-nourished Head exam: PRESENT: atraumatic, normocephalic Eye exam: PRESENT: conjunctiva pink, EOMI, PERRLA. ABSENT: scleral icterus Ear exam: PRESENT: normal external ear exam Mouth exam: PRESENT: dry mucosa, tongue midline Neck exam: PRESENT: full ROM. ABSENT: carotid bruit, JVD, lymphadenopathy, thyromegaly Respiratory exam: PRESENT: wheezes - Patient on BiPAP for my examination, other Cardiovascular exam: PRESENT: RRR. ABSENT: diastolic murmur, rubs, systolic murmur Pulses: PRESENT: normal dorsalis pedis pul, +2 pedal pulses bilateral Vascular exam: PRESENT: normal capillary refill GI/Abdominal exam: PRESENT: normal bowel sounds, soft. ABSENT: distended, guarding, mass, organolmegaly, rebound, tenderness Rectal exam: PRESENT: deferred Musculoskeletal exam: PRESENT: other - Right lower extremity: Swelling/ecchymosis centered along the anterior-lateral aspect of the ankle intact plantarflexion/dorsiflexion. Exquisite tenderness along the distal fibula. No medial sided tenderness. No sensory deficit. Cap refill less than 2 seconds. Dorsalis pedis pulse 2+. Left lower extremity: Swelling/ecchymosis along the fifth toe with tenderness palpation. Lateral rotation noted compared to noninvolved right foot. Intact flexion-extension of the toes however limited small toe secondary to pain. Cap refill less than 2 seconds. Normal skin turgor. No evidence of open wound. Neurological exam: PRESENT: alert, awake, CN II-XII grossly intact, other - Patient slightly disoriented to time place and situation. ABSENT: motor sensory deficit Psychiatric exam: PRESENT: appropriate affect, normal mood. ABSENT: homicidal ideation, suicidal ideation Skin exam: PRESENT: dry, intact, warm. ABSENT: cyanosis, rash Results Laboratory Results: 10/24/19 16:52 10/25/19 02:55 10/24/19 10/24/19 10/24/19 16:52 16:52 16:52 WBC 9.5 RBC 3.49 L Hgb 10.3 L Hct 31.1 L MCV 89 MCH 29.4 MCHC 33.0 RDW 16.5 H Plt Count 201 Seg Neutrophils % 74.8 Carbonic Acid HCO3/H2CO3 Ratio ABG pH ABG pCO2 ABG pO2 ABG HCO3 ABG O2 Saturation ABG Base Excess FiO2 Sodium 129.4 L Potassium 4.5 Chloride 95 L Carbon Dioxide 21 L Anion Gap 13 BUN 76 H Creatinine 8.29 H Est GFR ( Amer) 6 L Glucose 119 H Lactic Acid 1.1 Calcium 7.9 L Total Bilirubin 0.3 AST 41 H Alkaline Phosphatase 68 Total Protein 6.5 Albumin 3.7 Urine Color Urine Appearance Urine pH Ur Specific [place] Urine Protein Urine Glucose (UA) Urine Ketones Urine Blood Urine RBC (Auto) 10/24/19 10/24/19 10/24/19 17:16 18:00 18:48 WBC RBC Hgb Hct MCV MCH MCHC RDW Plt Count Seg Neutrophils % Carbonic Acid 1.61 H HCO3/H2CO3 Ratio 12:1 ABG pH 7.21 L ABG pCO2 53.4 H ABG pO2 142.5 H ABG HCO3 20.6 ABG O2 Saturation 98.3 H ABG Base Excess -7.3 FiO2 50% Sodium Potassium Chloride Carbon Dioxide Anion Gap BUN Creatinine Est GFR ( Amer) Glucose Lactic Acid 1.7 Calcium Total Bilirubin AST Alkaline Phosphatase Total Protein Albumin Urine Color YELLOW Urine Appearance SLIGHTLY-CLOUDY Urine pH 5.0 Ur Specific [place] 1.017 Urine Protein 30 H Urine Glucose (UA) NEGATIVE Urine Ketones NEGATIVE Urine Blood NEGATIVE Urine RBC (Auto) 1 10/24/19 10/25/19 10/25/19 21:24 00:30 02:55 WBC RBC Hgb Hct MCV MCH MCHC RDW Plt Count Seg Neutrophils % Carbonic Acid HCO3/H2CO3 Ratio ABG pH ABG pCO2 ABG pO2 ABG HCO3 ABG O2 Saturation ABG Base Excess FiO2 Sodium Potassium Chloride Carbon Dioxide Anion Gap BUN Creatinine Est GFR ( Amer) Glucose Lactic Acid 0.7 < 0.5 L 0.5 L Calcium Total Bilirubin AST Alkaline Phosphatase Total Protein Albumin Urine Color Urine Appearance Urine pH Ur Specific [place] Urine Protein Urine Glucose (UA) Urine Ketones Urine Blood Urine RBC (Auto) 10/25/19 10/25/19 10/25/19 02:55 06:26 07:20 WBC RBC Hgb Hct MCV MCH MCHC RDW Plt Count Seg Neutrophils % Carbonic Acid 1.76 H 1.88 H HCO3/H2CO3 Ratio 12:1 11:1 ABG pH 7.18 L* 7.16 L* ABG pCO2 58.4 H 62.4 H ABG pO2 61.3 L 47.7 L ABG HCO3 21.2 21.6 ABG O2 Saturation 84.7 L 71.0 L ABG Base Excess -7.4 -7.4 FiO2 32% 32% Sodium 130.3 L Potassium 4.8 Chloride 97 L Carbon Dioxide 19 L Anion Gap 14 BUN 78 H Creatinine 8.09 H Est GFR ( Amer) 6 L Glucose 199 H Lactic Acid Calcium 7.5 L Total Bilirubin 0.3 AST 36 Alkaline Phosphatase 67 Total Protein 6.2 L Albumin 3.4 L Urine Color Urine Appearance Urine pH Ur Specific [place] Urine Protein Urine Glucose (UA) Urine Ketones Urine Blood Urine RBC (Auto) Impressions: Chest X-Ray 10/24/19 16:51 IMPRESSION: 1. No acute pulmonary consolidation. 2. The perihilar markings are mildly prominent in appearance may represent edema or infiltrates. 3. Cardiomegaly. Foot X-Ray 10/24/19 17:08 IMPRESSION: 1. Slightly displaced fracture mid shaft proximal phalanx, left fifth toe. Ankle X-Ray 10/25/19 00:00 IMPRESSION: Lucency seen in one view of the distal fibula is more likely not a fracture. No definite fracture is seen. Status: Image reviewed by ok - I have reviewed radiographs of the right ankle and bilateral feet: Study demonstrates questionable nondisplaced distal fibula fracture no evidence of tibial-fibular clear space widening or medial space widening. As per the left foot there is evidence of proximal phalanx fracture with 50% displacement and lateral angulation. No associated fracture. Assessment & Plan - Diagnosis (2) Fracture of fifth toe, left, closed Qualifiers: Encounter type: initial encounter Qualified Code(s): S92.502A - Displaced unspecified fracture of left lesser toe(s), initial encounter for closed fracture Is this a current diagnosis for this admission?: Yes Plan: Radiographs demonstrate questionable cortical regularity combining with patient's clinical examination this would be consistent with nondisplaced distal fibula fracture there is no evidence of ankle malalignment I have recommended an pneumatic walking boot on the right and she may be weightbearing as tolerated. As for the left side although it is a displaced fracture she understands deformity is expected and would recommend against any further operative intervention patient may gricelda tape the fourth and fifth toes and be placed in a surgical shoe for protection. May be weightbearing as tolerated on the left side as well. Would recommend follow-up as an outpatient for radiographs.
[2019-10-25] MEDS ORDERED: NORMAL SALINE 1000 ML 1,000 ML IV PRN (11:07)
--- NOTE | 2019-10-25 11:18 | PDOC PROGRESS REPORT ---
Subjective Progress Note for:: 10/25/19 Subjective:: 49 year old female who presented to the emergency room via EMS, with a 2-day history of confusion. Patient was noted by her family to have progressively worsening mental confusion over the course of the last 2 days. The patient is confused and is not certain as to why she is in the emergency room. She admits falling 2 days ago and injuring both her of her feet which are still painful. She further admits having developed intermittent tremors of unknown etiology. The patient's complaints are somewhat uncertain as to reliability due to her acute confusion evidenced by variability in detail when the complaints are revisited. In the emergency room the patient was found to be hypoxic, hypotensive and acutely confused. She was treated via the sepsis protocol and admitted to the hospital for further evaluation treatment. 10/25/19-at the time of my examination patient alert awake oriented. Blood pressures are still low. Patient is receiving IV fluids and a dopamine drip. Latest creatinine is 8.0 patient's baseline creatinine is 0.9. Nephrology cons ult is requested with Dr. Garcia renal ultrasound is requested. Patient is receiving IV cefepime at this point time. Reason For Visit: SIRS,ACUTE RESPIRATORY FAILURE WITH HYPOXIA AND Physical Exam Vital Signs: Temp Pulse Resp BP Pulse Ox 97.6 F 69 12 110/60 99 10/25/19 07:56 10/25/19 09:33 10/25/19 09:33 10/25/19 07:56 10/25/19 09:33 Intake & Output 10/24/19 10/25/19 10/26/19 06:59 06:59 06:59 Intake Total 2750 Output Total 1400 Balance 1350 Weight 129 kg General appearance: PRESENT: no acute distress, morbidly obese Head exam: PRESENT: atraumatic Eye exam: PRESENT: PERRLA Mouth exam: PRESENT: moist, tongue midline Teeth exam: PRESENT: poor dentation Neck exam: ABSENT: carotid bruit, JVD, lymphadenopathy, thyromegaly Respiratory exam: PRESENT: clear to auscultation alison. ABSENT: rales, rhonchi, wheezes Cardiovascular exam: PRESENT: RRR. ABSENT: diastolic murmur, rubs, systolic murmur Pulses: PRESENT: normal dorsalis pedis pul GI/Abdominal exam: PRESENT: normal bowel sounds, soft. ABSENT: distended, guarding, mass, organolmegaly, rebound, tenderness Rectal exam: PRESENT: deferred Extremities exam: PRESENT: full ROM. ABSENT: calf tenderness, clubbing, pedal edema Neurological exam: PRESENT: alert, awake, oriented to person, oriented to place, oriented to time, oriented to situation, CN II-XII grossly intact. ABSENT: motor sensory deficit Psychiatric exam: PRESENT: appropriate affect, normal mood. ABSENT: homicidal ideation, suicidal ideation Results Laboratory Results: 10/24/19 16:52 10/25/19 02:55 10/24/19 10/24/19 10/24/19 16:52 16:52 16:52 WBC 9.5 RBC 3.49 L Hgb 10.3 L Hct 31.1 L MCV 89 MCH 29.4 MCHC 33.0 RDW 16.5 H Plt Count 201 Seg Neutrophils % 74.8 Carbonic Acid HCO3/H2CO3 Ratio ABG pH ABG pCO2 ABG pO2 ABG HCO3 ABG O2 Saturation ABG Base Excess FiO2 Sodium 129.4 L Potassium 4.5 Chloride 95 L Carbon Dioxide 21 L Anion Gap 13 BUN 76 H Creatinine 8.29 H Est GFR ( Amer) 6 L Glucose 119 H Lactic Acid 1.1 Calcium 7.9 L Total Bilirubin 0.3 AST 41 H Alkaline Phosphatase 68 Total Protein 6.5 Albumin 3.7 Urine Color Urine Appearance Urine pH Ur Specific [place] Urine Protein Urine Glucose (UA) Urine Ketones Urine Blood Urine RBC (Auto) 10/24/19 10/24/19 10/24/19 17:16 18:00 18:48 WBC RBC Hgb Hct MCV MCH MCHC RDW Plt Count Seg Neutrophils % Carbonic Acid 1.61 H HCO3/H2CO3 Ratio 12:1 ABG pH 7.21 L ABG pCO2 53.4 H ABG pO2 142.5 H ABG HCO3 20.6 ABG O2 Saturation 98.3 H ABG Base Excess -7.3 FiO2 50% Sodium Potassium Chloride Carbon Dioxide Anion Gap BUN Creatinine Est GFR ( Amer) Glucose Lactic Acid 1.7 Calcium Total Bilirubin AST Alkaline Phosphatase Total Protein Albumin Urine Color YELLOW Urine Appearance SLIGHTLY-CLOUDY Urine pH 5.0 Ur Specific [place] 1.017 Urine Protein 30 H Urine Glucose (UA) NEGATIVE Urine Ketones NEGATIVE Urine Blood NEGATIVE Urine RBC (Auto) 1 07/27/20 07/28/20 07/28/20 21:24 00:30 02:55 WBC RBC Hgb Hct MCV MCH MCHC RDW Plt Count Seg Neutrophils % Carbonic Acid HCO3/H2CO3 Ratio ABG pH ABG pCO2 ABG pO2 ABG HCO3 ABG O2 Saturation ABG Base Excess FiO2 Sodium Potassium Chloride Carbon Dioxide Anion Gap BUN Creatinine Est GFR ( Amer) Glucose Lactic Acid 0.7 < 0.5 L 0.5 L Calcium Total Bilirubin AST Alkaline Phosphatase Total Protein Albumin Urine Color Urine Appearance Urine pH Ur Specific [place] Urine Protein Urine Glucose (UA) Urine Ketones Urine Blood Urine RBC (Auto) 10/25/19 10/25/19 10/25/19 02:55 06:26 07:20 WBC RBC Hgb Hct MCV MCH MCHC RDW Plt Count Seg Neutrophils % Carbonic Acid 1.76 H 1.88 H HCO3/H2CO3 Ratio 12:1 11:1 ABG pH 7.18 L* 7.16 L* ABG pCO2 58.4 H 62.4 H ABG pO2 61.3 L 47.7 L ABG HCO3 21.2 21.6 ABG O2 Saturation 84.7 L 71.0 L ABG Base Excess -7.4 -7.4 FiO2 32% 32% Sodium 130.3 L Potassium 4.8 Chloride 97 L Carbon Dioxide 19 L Anion Gap 14 BUN 78 H Creatinine 8.09 H Est GFR ( Amer) 6 L Glucose 199 H Lactic Acid Calcium 7.5 L Total Bilirubin 0.3 AST 36 Alkaline Phosphatase 67 Total Protein 6.2 L Albumin 3.4 L Urine Color Urine Appearance Urine pH Ur Specific [place] Urine Protein Urine Glucose (UA) Urine Ketones Urine Blood Urine RBC (Auto) Impressions: Chest X-Ray 10/24/19 16:51 IMPRESSION: 1. No acute pulmonary consolidation. 2. The perihilar markings are mildly prominent in appearance may represent edema or infiltrates. 3. Cardiomegaly. Foot X-Ray 10/24/19 17:08 IMPRESSION: 1. Slightly displaced fracture mid shaft proximal phalanx, left fifth toe. Ankle X-Ray 10/25/19 00:00 IMPRESSION: Lucency seen in one view of the distal fibula is more likely not a fracture. No definite fracture is seen. Assessment and Plan - Diagnosis (1) Acute respiratory failure with hypoxia and hypercapnia Is this a current diagnosis for this admission?: Yes Plan: 10/22/2019-patient came in with acute on chronic respiratory failure with hypoxia and hypercapnia. Patient is on BiPAP. Serial ABGs are done latest ABG shows pH of 7.16 with PCO2 62, PO2 47.7 with a bicarb of 21. Oxygen saturation of 71. She is on 32% oxygen. Patient is alert awake communicating well. Is to repeat the ABG later on today and 40% oxygen. Chest x-ray shows questionable infiltrates. Patient is receiving IV cefepime. (2) Acute kidney injury (nontraumatic) Is this a current diagnosis for this admission?: Yes Plan: 10/25/2019-patient's baseline creatinine is around 0.9 in 2018. On admission creatinine is 8.29. With IV fluids slightly improved to 8.09. Plan is to continue normal saline at 250 cc/h urinary output is good. Renal ultrasound was requested and a consultation with Dr. Josue Garcia is requested. (3) Confusion Is this a current diagnosis for this admission?: No Plan: 10/25/2019-patient was brought to the emergency room with complaints of conf usion, altered mental status at the time of examination patient alert awake communicating well. Acute metabolic encephalopathy resolved. (4) Fracture of fifth toe, left, closed Qualifiers: Encounter type: initial encounter Qualified Code(s): S92.502A - Displaced unspecified fracture of left lesser toe(s), initial encounter for closed fracture Is this a current diagnosis for this admission?: Yes Plan: 10/25/2019-consultation with Dr. Garry Boyle was done recommendation is conservative management at this time. (5) Sepsis Is this a current diagnosis for this admission?: Yes Plan: 10/17/2019-patient came in with altered mental status, hypotensive requiring dopamine and IV fluids and also has acute kidney injury. May meet the criteria for sepsis. Plan is to continue IV fluids and IV cefepime. (6) Morbid obesity Is this a current diagnosis for this admission?: No Plan: 10/25/2019-patient BMI is more than 48 diet exercise weight loss lifestyle modifications discussed with the patient. - Plan Summary Summary: Patient will be admitted to [facility] where she will receive routine supportive and symptomatic cares. She will be maintained on BiPAP or other supplemental oxygen to maintain an adequate oxygen saturation level. She will receive high-volume IV fluids utilizing lactated Ringer solution. An orthopedic consultation with Dr. Boyle will be obtained. IV cefepime 2 g every 12 hours will be given empirically pending culture results. She will receive Ativan 1 mg IV every 4 hours as needed for anxiety or restlessness. She will receive morphine sulfate 2 to 4 mg IV every 2 hours as needed for pain control. Serial lactic acid levels will be obtained per the sepsis protocol. CBCs, metabolic profiles, magnesium levels and additional laboratory and/or radiographic evaluations will be obtained as needed. Patient will be on a cardiac diet. - Time Anticipated Discharge Disposition: Home, Self Care Anticipated Discharge: within 72 hours
[2019-10-25 13:10] LABS: URINE BARBITURATES SCREEN NEGATIVE; URINE BENZODIAZEPINES SCREEN NEGATIVE; URINE COCAINE SCREEN NEGATIVE; URINE MARIJUANA (THC) SCREEN NEGATIVE; URINE METHADONE SCREEN NEGATIVE; URINE PHENCYCLIDINE SCREEN NEGATIVE
[2019-10-25 13:17] LABS: URINE AMPHETAMINES SCREEN UNCONFIRMED POSITIVE
[2019-10-25] MEDS ORDERED: METHYLPREDNISOLONE INJ 40 MG/1 ML SDV IV ONE (14:45)
[2019-10-25] MEDS: CEFEPIME HCL 2 GM in DEXTROSE 5%-WATER 50 ML IV SCH ×2 (14:46→21:53)
[2019-10-25 14:57] LABS: ARTERIAL BLOOD BASE EXCESS -8.3 mmol/L; ARTERIAL BLOOD H2CO3 1.77 mmol/L (1.05-1.35); ARTERIAL BLOOD HCO3 20.8 mmol/L (20-24); ARTERIAL BLOOD PCO2 58.9 mmHg (35-45); ARTERIAL BLOOD PO2 83.1 mmHg (80-100); ARTERIAL BLOOD TOTAL CO2 22.6 mmol/L (21-25)
[2019-10-25 15:02] LABS: ARTERIAL BLOOD FIO2 40%
[2019-10-25 15:06] LABS: ARTERIAL BLOOD PH 7.17 (7.35-7.45)
[2019-10-25 17:06] LABS: ABSOLUTE LYMPHOCYTES (AUTO) 0.5 10^3/uL (0.5-4.7); ABSOLUTE MONOCYTES (AUTO) 0.4 10^3/uL (0.1-1.4); ABSOLUTE NEUT (AUTO) 5.9 10^3/uL (1.7-8.2); BASOPHILS % (AUTO) 0.2 % (0-2); HEMATOCRIT 29.7 % (36.0-47.0); HEMOGLOBIN 9.8 g/dL (12.0-15.5); LYMPHOCYTES % (AUTO) 7.6 % (13-45); MEAN CORPUSCULAR HEMOGLOBIN 29.1 pg (27.0-33.4); MEAN CORPUSCULAR HGB CONC 33.1 g/dL (32.0-36.0); MEAN CORPUSCULAR VOLUME 88 fl (80-97); MONOCYTES % (AUTO) 6.5 % (3-13); PLATELET COUNT 161 10^3/uL (150-450); RED BLOOD COUNT 3.38 10^6/uL (3.72-5.28); SEGMENTED NEUTROPHILS % (AUTO) 85.7 % (42-78); TOTAL CELLS COUNTED % (AUTO) 100 %; WHITE BLOOD COUNT 6.9 10^3/uL (4.0-10.5)
--- NOTE | 2019-10-25 17:20 | RADIOLOGY REPORT (SQ) ---
EXAM DESCRIPTION: U/S RETROPERITON (RENAL/AORTA) IMAGES COMPLETED DATE/TIME: 10/25/2019 5:08 pm REASON FOR STUDY: james COMPARISON: None. TECHNIQUE: Dynamic and static grayscale images acquired of the kidneys and bladder and recorded on P ACS. Additional selected color Doppler and spectral images recorded. LIMITATIONS: Limited examination due to patient body habitus. FINDINGS: RIGHT KIDNEY: The right kidney measures 10.9 x 5.3 x 6.0 cm, normal size. Normal echogeni city. No solid or suspicious masses. No hydronephrosis. No calcifications. LEFT KIDNEY: The left kidney measures 11.4 x 4.9 x 5.9 cm, normal size. Normal echogenicity. A 7 x 8 mm calculus is suggested in the lower pole of the kidney. Question of mild dilatation of the renal pelvis. BLADDER: Tovar catheter within the urinary bladder. OTHER FINDINGS: No other significant finding. IMPRESSION: 1. The examination is limited due to the patient's body habitus. 2. No hydronephrosis on the right. 3. Question of a nonobstructing calculus in the lower pole of the kidney. 4. Mild left renal pelvic dilatation suggested. 5. Tovar catheter within the urinary bladder. TECHNICAL DOCUMENTATION: JOB ID: [id number] 2010 [employer]- All Rights Reserved Reading location - IP/workstation name: [email or web address]
[2019-10-25 17:32] LABS: ALBUMIN 3.3 g/dL (3.5-5.0); ALKALINE PHOSPHATASE 61 U/L (38-126); ANION GAP 10 (5-19); ASPARTATE AMINO TRANSFERASE 30 U/L (14-36); BILIRUBIN,DIRECT 0.2 mg/dL (0.0-0.4); BILIRUBIN,TOTAL 0.3 mg/dL (0.2-1.3); BLOOD UREA NITROGEN 73 mg/dL (7-20); CALCIUM 7.3 mg/dL (8.4-10.2); CARBON DIOXIDE 22 mmol/L (22-30); CHLORIDE 99 mmol/L (98-107); GLUCOSE 122 mg/dL (75-110); POTASSIUM 4.4 mmol/L (3.6-5.0); TOTAL PROTEIN 6.2 g/dL (6.3-8.2)
[2019-10-25] MEDS ORDERED: GLYCOPYRROLATE 2 MG PO SCH (18:00)
--- NOTE | 2019-10-25 19:27 | RADIOLOGY REPORT (SQ) ---
EXAM DESCRIPTION: CHEST SINGLE VIEW IMAGES COMPLETED DATE/TIME: 10/25/2019 6:52 pm REASON FOR STUDY: dyspnea COMPARISON: 10/24/2019 EXAM PARAMETERS: NUMBER OF VIEWS: One view. TECHNIQUE: Single frontal radiographic view of the chest acquired. RADIATION DOSE: NA LIMITATIONS: None. FINDINGS: LUNGS AND PLEURA: Decreased vascular congestion. No consolidation. No mass. MEDIASTINUM AND HILAR STRUCTURES: No masses. Contour normal. HEART AND VASCULAR STRUCTURES: Heart size is borderline. No pulmonary edema. BONES: No acute findings. HARDWARE: None in the chest. OTHER: No other significant finding. IMPRESSION: Borderline cardiomegaly without pulmonary edema. Decreased pulmonary vascular congestio n. TECHNICAL DOCUMENTATION: JOB ID: [id number] 2010 [employer]- All Rights Reserved Reading location - IP/workstation name: [email or web address]
[2019-10-25] MEDS: LEVALBUTEROL HCL NEB 0.63 MG/3 ML AMPUL NEB PRN (19:32)
[2019-10-25] MEDS: GLYCOPYRROLATE 1 MG TABLET PO SCH (19:36)
--- NOTE | 2019-10-25 21:06 | PDOC CONSULTATION ---
Consultation Consult Date: 10/25/19 Provider Consulted: Nickolas HALL Consult reason:: SHAVON. History of Present Illness Admission Date/PCP: 10/24/19 19:25 VILMA TOTH III, MD History of Present Illness: JOSÉ LUIS JAVED is a 49 year old female with a past medical history of chronic hypertension, h/o nephrolithiasis, chronic pain syndrome with apparent multiple degenerative disc disease with nerve impingement on chronic narcotics, history of cancer of the cervix for which she underwent a complicated complete hysterectomy followed by chemoradiation, history of complications of apparent mesh involvement with her bowels leading to bowel obstruction and bowel surgery, history of trigeminal neuralgia for which she had apparent brain brain surgery, history of anxiety/depression on multiple anti-depressants was admitted with history of altered mental status with a history of fall. Her mother is by the bedside who also contributed to the history. The patient is on BiPAP but awake and oriented and responsive very well to questions. She does not remember exactly the sequence of events that brought her to the hospital and therefore the mother is able to fill in. She says over the last few days she has generally become more weaker and she tripped/stumbled and fell down on her onto her feet and in the process apparently has had a close fracture of her left fifth toe. There is a questionable fracture of right ankle as well.She is also been not eating and drinking for the last 1 week or so. She says she has not had a good bowel movement since the last 5 days. However she has been able to move flatus. She also has had some difficulty in urination for apparently a couple of days prior to admission. She says she has to urinate but has had very poor flow. She says she had a good response to Tovar catheter placed during her admission in the ER however.She also mentions that she has been taking 2-3 BC powders twice daily for the last few weeks for add on pain medications. No history of any other NSAIDs. No history of any abdominal pains, fever or chills. No history of any dysuria or hematuria.No history of any coughing spells or shortness of breath or chest pains. Evaluations ER revealed that besides the fractures she is found to have SHAVON with a creatinine of 8+ with acidosis.Last lab we have was from 2018 when a creatinine was below 1. ABG showed that she had respiratory/metabolic combined acidosis and she has been begun on BiPAP and she seems to have responded as her mental status is markedly improved as confirmed her mother as well. Labs and medications were reviewed.She just had a renal ultrasound done which shows possible left mild renal pelvic dilatation and a nonobstructing calculus in the left lower pole. Past Medical History Cardiac Medical History: Reports: Hypertension-primary Denies: Coronary Artery Disease, Myocardial Infarction Pulmonary Medical History: Denies: Asthma, Chronic Obstructive Pulmonary Disease (COPD), Tuberculosis EENT Medical History: Reports: Other - Sinusitis Denies: Cataracts, Ears - Hearing aids Neurological Medical History: Reports: Other - Trigeminal neuralgia Denies: Multiple Sclerosis, Seizures Endocrine Medical History: Reports: Obesity Denies: Diabetes Mellitus Type 1, Diabetes Mellitus Type 2, Hyperthyroidism, Hypothyroidism Complications of Diabetes: Reports: None Renal/ Medical History: Reports: Nephrolithiasis Malignancy Medical History: Reports: Cervical Cancer - Status post complete hysterectomy followed by chemoradiation. Later compli GI Medical History: Reports: Other - Enteric fistula, small bowel obstruction, large ventral hernia Denies: Cirrhosis, Hepatitis Musculoskeltal Medical History: Reports: Other - Chronic pain syndrome-opioid dependent Denies: Fibromyalgia, Gout Skin Medical History: Denies: Eczema, Psoriasis Psychiatric Medical History: Reports: Depression, General Anxiety Disorder, Tobacco Dependency Denies: Alcohol Dependency, Substance Abuse Traumatic Medical History: Reports: None Infectious Medical History: Reports: None Past Surgical History Past Surgical History: Reports: Herniorrhaphy - Ventral herniorrhaphies x5 with mesh and persistent ventral hernia, Hysterectomy - TAHBSO, Other - ANGY, BSO thousand 5; hernia repair with mesh 2004 Social History Lives with: Family Smoking Status: Former Smoker Cigarettes Packs Per Day: 2 Electronic Cigarette use?: No Number of Years Smokin Last Time Smoked: 2016 Frequency of Alcohol Use: None Hx Recreational Drug Use: No Drugs: None Hx Prescription Drug Abuse: No Family History Parental Family History Reviewed: Yes - Apparently her father had some sort of kidney disease but never reached ESR Children Family History Reviewed: No Sibling(s) Family History Reviewed.: No Medication/Allergy Home Medications: Biotin [Biotin 5 mg Tablet] 5 mg PO DAILY 10/25/19 Bupropion HCl [Bupropion Xl] 150 mg PO DAILY 10/25/19 Fentanyl [Duragesic 100 Mcg/Hr Transdermal Patch] 1 patch TOP Q3DAYS 10/25/19 Fluticasone Propionate [Flonase Nasal [place] 50 Mcg/[place] 16 gm] 2 spray NASL DAILY 10/25/19 Gabapentin [Neurontin 300 mg Capsule] 600 mg PO Q8 10/25/19 Glycopyrrolate 2 mg PO BID 10/25/19 Hydrochlorothiazide [Hydrodiuril 25 mg Tablet] 25 mg PO DAILY 10/25/19 Morphine Sulfate [Morphine Sulfate ER] 30 mg PO Q12 10/25/19 Multivitamin [One-Daily Multi-Vitamin] 1 tab PO DAILY 10/25/19 Phentermine HCl [Adipex-P] 37.5 mg PO DAILY 10/25/19 Sertraline HCl 100 mg PO DAILY 10/25/19 Valsartan [Diovan 160 mg Tablet] 160 mg PO DAILY 10/25/19 Allergies/Adverse Reactions: No Known Allergies Allergy (Verified 10/24/19 16:55) Review of Systems Constitutional: PRESENT: anorexia, fatigue, weakness. ABSENT: chills, fever(s), headache(s), night sweats Nose, Mouth, and Throat: ABSENT: mouth pain, sore throat Cardiovascular: ABSENT: chest pain, dyspnea on exertion, edema, orthropnea Respiratory: ABSENT: cough, dyspnea, hemoptysis Gastrointestinal: PRESENT: constipation, heartburn. ABSENT: abdominal pain, diarrhea, nausea, vomiting Genitourinary: ABSENT: dysuria, hematuria Musculoskeletal: ABSENT: deformity, joint swelling Integumentary: ABSENT: erythema, lesions, pruritus, rash Neurological: PRESENT: confusion. ABSENT: focal weakness Psychiatric: ABSENT: hallucinations Endocrine: ABSENT: polydipsia Hematologic/Lymphatic: ABSENT: easy bruising, lymphadenopathy Physical Exam Vital Signs: Temp Pulse Resp BP Pulse Ox 97.3 F 77 411 H 103/48 L 95 10/25/19 16:41 10/25/19 19:32 10/25/19 19:42 10/25/19 16:41 10/25/19 19:42 Intake & Output 10/24/19 10/25/19 10/26/19 06:59 06:59 06:59 Intake Total 2750 Output Total 1400 1600 Balance 1350 -1600 Weight 129 kg General appearance: PRESENT: no acute distress Exam: Currently she is using the BiPAP but looks very comfortable Eye exam: PRESENT: EOMI, PERRLA. ABSENT: scleral icterus Ear exam: PRESENT: normal external ear exam Mouth exam: PRESENT: neck supple. ABSENT: moist Neck exam: ABSENT: lymphadenopathy, meningismus, tenderness, thyromegaly, tracheal deviation Respiratory exam: PRESENT: clear to auscultation alison, decreased breath sounds. ABSENT: crackles Cardiovascular exam: PRESENT: +S1, +S2 GI/Abdominal exam: PRESENT: normal bowel sounds, soft. ABSENT: organomegaly, tenderness Gentrourinary exam: ABSENT: ecchymosis, erythema Extremities exam: PRESENT: pedal edema. ABSENT: calf tenderness, clubbing Neurological exam: PRESENT: alert, awake, oriented to person, oriented to place Psychiatric exam: PRESENT: appropriate affect Skin exam: ABSENT: cyanosis, erythema, mottled, rash Results Laboratory Results: 10/25/19 16:39 10/25/19 16:39 10/24/19 10/25/19 10/25/19 21:24 00:30 02:55 WBC RBC Hgb Hct MCV MCH MCHC RDW Plt Count Seg Neutrophils % Carbonic Acid HCO3/H2CO3 Ratio ABG pH ABG pCO2 ABG pO2 ABG HCO3 ABG O2 Saturation ABG Base Excess FiO2 Sodium Potassium Chloride Carbon Dioxide Anion Gap BUN Creatinine Est GFR ( Amer) Glucose Lactic Acid 0.7 < 0.5 L 0.5 L Calcium Total Bilirubin AST Alkaline Phosphatase Total Protein Albumin 10/25/19 10/25/19 10/25/19 02:55 06:26 07:20 WBC RBC Hgb Hct MCV MCH MCHC RDW Plt Count Seg Neutrophils % Carbonic Acid 1.76 H 1.88 H HCO3/H2CO3 Ratio 12:1 11:1 ABG pH 7.18 L* 7.16 L* ABG pCO2 58.4 H 62.4 H ABG pO2 61.3 L 47.7 L ABG HCO3 21.2 21.6 ABG O2 Saturation 84.7 L 71.0 L ABG Base Excess -7.4 -7.4 FiO2 32% 32% Sodium 130.3 L Potassium 4.8 Chloride 97 L Carbon Dioxide 19 L Anion Gap 14 BUN 78 H Creatinine 8.09 H Est GFR ( Amer) 6 L Glucose 199 H Lactic Acid Calcium 7.5 L Total Bilirubin 0.3 AST 36 Alkaline Phosphatase 67 Total Protein 6.2 L Albumin 3.4 L 10/25/19 10/25/19 10/25/19 14:44 16:39 16:39 WBC 6.9 RBC 3.38 L Hgb 9.8 L Hct 29.7 L MCV 88 MCH 29.1 MCHC 33.1 RDW 16.0 H Plt Count 161 Seg Neutrophils % 85.7 H Carbonic Acid 1.77 H HCO3/H2CO3 Ratio 11:1 ABG pH 7.17 L* ABG pCO2 58.9 H ABG pO2 83.1 ABG HCO3 20.8 ABG O2 Saturation 93.0 L ABG Base Excess -8.3 FiO2 40% Sodium 130.9 L Potassium 4.4 Chloride 99 Carbon Dioxide 22 Anion Gap 10 BUN 73 H Creatinine 5.87 H Est GFR ( Amer) 9 L Glucose 122 H Lactic Acid Calcium 7.3 L Total Bilirubin 0.3 AST 30 Alkaline Phosphatase 61 Total Protein 6.2 L Albumin 3.3 L Impressions: Foot X-Ray 10/24/19 17:08 IMPRESSION: 1. Slightly displaced fracture mid shaft proximal phalanx, left fifth toe. Ankle X-Ray 10/25/19 00:00 IMPRESSION: Lucency seen in one view of the distal fibula is more likely not a fracture. No definite fracture is seen. Chest X-Ray 10/25/19 00:00 IMPRESSION: Borderline cardiomegaly without pulmonary edema. Decreased pulmonary vascular congestion. Renal Ultrasound 10/25/19 00:00 IMPRESSION: 1. The examination is limited due to the patient's body habitus. 2. No hydronephrosis on the right. 3. Question of a nonobstructing calculus in the lower pole of the kidney. 4. Mild left renal pelvic dilatation suggested. 5. Tovar catheter within the urinary bladder. Assessment & Plan - Diagnosis (1) Acute encephalopathy Is this a current diagnosis for this admission?: Yes Plan: Likely multifactorial. Differential diagnosis leading to this includes SHAVON with possible uremia/acute on chronic respiratory acidosis which could have been made worse by her narcotics which became toxic in the presence of SHAVON/Narcotic o verdose in the presence of SHAVON/Possible sepsis. Currently holding off on narcotics and renal failure being corrected with fluid hydration and she being on BiPAP, her encephalopathy seems to be markedly improved. I would continue on current guidelines. She is also been covered with antibiotics pending cultures. (2) Acute kidney injury (nontraumatic) Is this a current diagnosis for this admission?: Yes Plan: Currently nonoliguric as seen by the good response that she has had to the Tovar catheter introduction along with IV fluids. Initially I was concerned given a history of cervical cancer that she had obstructive uropathy but the renal ultrasound is not showing such. She could have had urinary outlet obstruction because of narcotics in the presence of SHAVON. That seems to be obviously resolved with introduction of Tovar catheter. Her urine is rather bland. I think that this is probably all prerenal and would continue current guidelines and see the response. No indications for renal replacements. (3) Fracture of fifth toe, left, closed Qualifiers: Encounter type: initial encounter Qualified Code(s): S92.502A - Displaced unspecified fracture of left lesser toe(s), initial encounter for closed fracture Is this a current diagnosis for this admission?: Yes Plan: As per orthopedics. (4) Hypotension (arterial) Qualifiers: Hypotension type: unspecified hypotension type Qualified Code(s): I95.9 - Hypotension, unspecified Is this a current diagnosis for this admission?: Yes Plan: Seems responding to just IV fluid resuscitation. Sepsis could be a factor and she is covered with antibiotics pending cultures. Lactic acid levels were however negative. Other considerations would be overdose of narcotics the presence of SHAVON with with poor intake. L (5) Morbid obesity Is this a current diagnosis for this admission?: No Plan: Status quo. She possibly has features of sleep apnea given her morbid obesity and she would benefit from a sleep study post discharge. This would also be a ble to correct her possible chronic CO2 retention. (6) Metabolic acidosis with respiratory acidosis Plan: Combination of CO2 retention/SHAVON. See response to above current guidelines.
[2019-10-25] MEDS: MELATONIN 5 MG TABLET PO PRN (21:52)
[2019-10-26 00:10] LABS: ARTERIAL BLOOD BASE EXCESS -10.7 mmol/L; ARTERIAL BLOOD H2CO3 1.53 mmol/L (1.05-1.35); ARTERIAL BLOOD HCO3 17.8 mmol/L (20-24); ARTERIAL BLOOD O2 SATURATION 81.2 % (94-98); ARTERIAL BLOOD PCO2 50.9 mmHg (35-45); ARTERIAL BLOOD PO2 56.9 mmHg (80-100); ARTERIAL BLOOD TOTAL CO2 19.3 mmol/L (21-25)
[2019-10-26 00:22] LABS: ARTERIAL BLOOD FIO2 40%
[2019-10-26 00:23] LABS: ARTERIAL BLOOD PH 7.16 (7.35-7.45)
[2019-10-26] MEDS: LEVALBUTEROL HCL NEB 1.25 MG/3 ML AMPUL NEB SCH ×3 (00:27→16:37)
[2019-10-26] MEDS: IPRATROPIUM BROMIDE 0.02% NEB 0.5 MG/2.5 ML AMPUL NEB SCH ×3 (00:27→16:37)
[2019-10-26] MEDS: MORPHINE SULFATE 10 MG/ML INJ IV PRN (00:34)
[2019-10-26 00:49] LABS: ALBUMIN 3.4 g/dL (3.5-5.0); ALKALINE PHOSPHATASE 61 U/L (38-126); ANION GAP 13 (5-19); ASPARTATE AMINO TRANSFERASE 29 U/L (14-36); BILIRUBIN,DIRECT 0.2 mg/dL (0.0-0.4); BILIRUBIN,TOTAL 0.3 mg/dL (0.2-1.3); BLOOD UREA NITROGEN 71 mg/dL (7-20); CALCIUM 7.4 mg/dL (8.4-10.2); CARBON DIOXIDE 18 mmol/L (22-30); CHLORIDE 101 mmol/L (98-107); GLUCOSE 141 mg/dL (75-110); POTASSIUM 4.3 mmol/L (3.6-5.0); TOTAL PROTEIN 6.3 g/dL (6.3-8.2)
[2019-10-26] MEDS: NORMAL SALINE 1000 ML 1,000 ML IV PRN ×2 (02:03→19:00)
[2019-10-26 04:30] LABS: ARTERIAL BLOOD BASE EXCESS -6.9 mmol/L; ARTERIAL BLOOD FIO2 40%; ARTERIAL BLOOD HCO3 21.3 mmol/L (20-24); ARTERIAL BLOOD O2 SATURATION 95.8 % (94-98); ARTERIAL BLOOD PCO2 56.5 mmHg (35-45); ARTERIAL BLOOD PO2 98.2 mmHg (80-100); ARTERIAL BLOOD TOTAL CO2 23.1 mmol/L (21-25)
[2019-10-26] MEDS: PANTOPRAZOLE SODIUM 40 MG TABLET.DR PO SCH ×2 (07:31→17:42)
[2019-10-26 07:38] LABS: ABSOLUTE LYMPHOCYTES (AUTO) 0.7 10^3/uL (0.5-4.7); ABSOLUTE MONOCYTES (AUTO) 0.5 10^3/uL (0.1-1.4); ABSOLUTE NEUT (AUTO) 5.6 10^3/uL (1.7-8.2); BASOPHILS % (AUTO) 0.3 % (0-2); EOSINOPHILS % (AUTO) 0.1 % (0-6); HEMATOCRIT 26.9 % (36.0-47.0); LYMPHOCYTES % (AUTO) 10.8 % (13-45); MEAN CORPUSCULAR HEMOGLOBIN 29.4 pg (27.0-33.4); MEAN CORPUSCULAR HGB CONC 33.6 g/dL (32.0-36.0); MEAN CORPUSCULAR VOLUME 88 fl (80-97); MONOCYTES % (AUTO) 7.7 % (3-13); PLATELET COUNT 167 10^3/uL (150-450); RED BLOOD COUNT 3.07 10^6/uL (3.72-5.28); SEGMENTED NEUTROPHILS % (AUTO) 81.1 % (42-78); TOTAL CELLS COUNTED % (AUTO) 100 %; WHITE BLOOD COUNT 6.9 10^3/uL (4.0-10.5)
[2019-10-26 07:50] LABS: ALBUMIN 2.8 g/dL (3.5-5.0); ALKALINE PHOSPHATASE 55 U/L (38-126); ANION GAP 6 (5-19); ASPARTATE AMINO TRANSFERASE 24 U/L (14-36); BILIRUBIN,TOTAL 0.2 mg/dL (0.2-1.3); BLOOD UREA NITROGEN 70 mg/dL (7-20); CALCIUM 7.1 mg/dL (8.4-10.2); CARBON DIOXIDE 20 mmol/L (22-30); CHLORIDE 108 mmol/L (98-107); GLUCOSE 94 mg/dL (75-110); POTASSIUM 4.2 mmol/L (3.6-5.0); TOTAL PROTEIN 5.5 g/dL (6.3-8.2)
[2019-10-26] MEDS: BUDESONIDE NEB 0.5 MG/2 ML AMPUL NEB SCH ×2 (08:43→19:39)
[2019-10-26] MEDS: GLYCOPYRROLATE 1 MG TABLET PO SCH ×2 (09:23→17:43)
[2019-10-26] MEDS: CEFEPIME HCL 2 GM in DEXTROSE 5%-WATER 50 ML IV SCH ×2 (09:24→21:37)
[2019-10-26] MEDS: FLUTICASONE NASAL SPRAY 50 MCG/SPRY 120 SPRAY/16 GM NASL SCH (09:24)
[2019-10-26] MEDS: MULTIVITAMIN TABLET PO SCH (09:25)
[2019-10-26] MEDS ORDERED: BIOTIN 5 MG PO SCH (10:00)
--- NOTE | 2019-10-26 11:10 | PDOC PROGRESS REPORT ---
Subjective Progress Note for:: 10/26/19 Reason For Visit: Patient sen today. She is looking lots better and off the Bipap. Talking well and responsive. Denies any chest pains, dyspnea, abdominal pains, fever or chills. Has had a large Bowel movement and feels lots better for that. Making good amounts of urine via moe. On clear liquids now. Appetite still poor. Labs and medications reviewed. Her creatinine is responding nicely. Had cut back fluid some. Physical Exam Vital Signs: Temp Pulse Resp BP Pulse Ox 97.5 F 69 16 99/51 L 95 10/26/19 07:34 10/26/19 08:38 10/26/19 08:38 10/26/19 07:34 10/26/19 08:38 Intake & Output 10/25/19 10/26/19 10/27/19 06:59 06:59 06:59 Intake Total 2750 100 Output Total 1400 3000 Balance 1350 -2900 Weight 129 kg 131.7 kg General appearance: PRESENT: no acute distress Respiratory exam: PRESENT: clear to auscultation alison, decreased breath sounds. ABSENT: crackles Cardiovascular exam: PRESENT: +S1, +S2 GI/Abdominal exam: PRESENT: normal bowel sounds, soft. ABSENT: organomegaly, tenderness Extremities exam: PRESENT: pedal edema - trace-1+ Neurological exam: PRESENT: alert, awake, oriented to person, oriented to place Psychiatric exam: PRESENT: appropriate affect Results Laboratory Results: 10/26/19 06:06 10/26/19 06:06 10/25/19 10/25/19 10/25/19 14:44 16:39 16:39 WBC 6.9 RBC 3.38 L Hgb 9.8 L Hct 29.7 L MCV 88 MCH 29.1 MCHC 33.1 RDW 16.0 H Plt Count 161 Seg Neutrophils % 85.7 H Carbonic Acid 1.77 H HCO3/H2CO3 Ratio 11:1 ABG pH 7.17 L* ABG pCO2 58.9 H ABG pO2 83.1 ABG HCO3 20.8 ABG O2 Saturation 93.0 L ABG Base Excess -8.3 FiO2 40% Sodium 130.9 L Potassium 4.4 Chloride 99 Carbon Dioxide 22 Anion Gap 10 BUN 73 H Creatinine 5.87 H Est GFR ( Amer) 9 L Glucose 122 H Calcium 7.3 L Magnesium Total Bilirubin 0.3 AST 30 Alkaline Phosphatase 61 Ammonia Total Protein 6.2 L Albumin 3.3 L 10/26/19 10/26/19 10/26/19 00:00 00:14 00:14 WBC RBC Hgb Hct MCV MCH MCHC RDW Plt Count Seg Neutrophils % Carbonic Acid 1.53 H HCO3/H2CO3 Ratio 11:1 ABG pH 7.16 L* ABG pCO2 50.9 H ABG pO2 56.9 L ABG HCO3 17.8 L ABG O2 Saturation 81.2 L ABG Base Excess -10.7 FiO2 40% Sodium 131.9 L Potassium 4.3 Chloride 101 Carbon Dioxide 18 L Anion Gap 13 BUN 71 H Creatinine 5.29 H Est GFR ( Amer) 10 L Glucose 141 H Calcium 7.4 L Magnesium Total Bilirubin 0.3 AST 29 Alkaline Phosphatase 61 Ammonia < 8.7 L Total Protein 6.3 Albumin 3.4 L 10/26/19 10/26/19 10/26/19 04:00 06:06 06:06 WBC 6.9 RBC 3.07 L Hgb 9.0 L Hct 26.9 L MCV 88 MCH 29.4 MCHC 33.6 RDW 16.0 H Plt Count 167 Seg Neutrophils % 81.1 H Carbonic Acid 1.70 H HCO3/H2CO3 Ratio 12:1 ABG pH 7.20 L* ABG pCO2 56.5 H ABG pO2 98.2 ABG HCO3 21.3 ABG O2 Saturation 95.8 ABG Base Excess -6.9 FiO2 40% Sodium 133.9 L Potassium 4.2 Chloride 108 H Carbon Dioxide 20 L Anion Gap 6 BUN 70 H Creatinine 4.59 H Est GFR ( Amer) 12 L Glucose 94 Calcium 7.1 L Magnesium 2.9 H Total Bilirubin 0.2 AST 24 Alkaline Phosphatase 55 Ammonia Total Protein 5.5 L Albumin 2.8 L 10/24/19 18:48 Catheterized Urine Urine Culture - Final NO GROWTH 2 DAYS Impressions: Foot X-Ray 10/24/19 17:08 IMPRESSION: 1. Slightly displaced fracture mid shaft proximal phalanx, left fifth toe. Ankle X-Ray 10/25/19 00:00 IMPRESSION: Lucency seen in one view of the distal fibula is more likely not a fracture. No definite fracture is seen. Chest X-Ray 10/25/19 00:00 IMPRESSION: Borderline cardiomegaly without pulmonary edema. Decreased pulmonary vascular congestion. Renal Ultrasound 10/25/19 00:00 IMPRESSION: 1. The examination is limited due to the patient's body habitus. 2. No hydronephrosis on the right. 3. Question of a nonobstructing calculus in the lower pole of the kidney. 4. Mild left renal pelvic dilatation suggested. 5. Moe catheter within the urinary bladder. Assessment & Plan - Diagnosis (1) Acute encephalopathy Is this a current diagnosis for this admission?: Yes Plan: Resolved. (2) Acute kidney injury (nontraumatic) Is this a current diagnosis for this admission?: Yes Plan: `Nonoliguric and improving to current guidelines. Continue on the same but have cut back on the fluids. (3) Fracture of fifth toe, left, closed Qualifiers: Encounter type: initial encounter Qualified Code(s): S92.502A - Displaced unspecified fracture of left lesser toe(s), initial encounter for closed fracture Is this a current diagnosis for this admission?: Yes Plan: As per Ortho. (4) Hypotension (arterial) Qualifiers: Hypotension type: unspecified hypotension type Qualified Code(s): I95.9 - Hypotension, unspecified Is this a current diagnosis for this admission?: Yes Plan: Blood pressures are in the low 100 systolics. Monitor. (5) Metabolic acidosis with respiratory acidosis Plan: Improving. Continue current guidelines. Monitor. (6) History of malignant neoplasm of cervix Plan: Status post surgery/complete hysterectomy followed by chemoradiation.
--- NOTE | 2019-10-26 16:07 | PDOC PROGRESS REPORT ---
Subjective Progress Note for:: 10/26/19 Subjective:: The patient and her mother had many questions today. The patient still reports feeling very sleepy. Reason For Visit: SIRS,ACUTE RESPIRATORY FAILURE WITH HYPOXIA AND Physical Exam Vital Signs: Temp Pulse Resp BP Pulse Ox 97.3 F 71 21 H 103/52 L 94 10/26/19 11:22 10/26/19 14:00 10/26/19 11:22 10/26/19 11:22 10/26/19 11:22 Intake & Output 10/25/19 10/26/19 10/27/19 06:59 06:59 06:59 Intake Total 2750 100 0 Output Total 1400 3000 850 Balance 1350 -2900 -850 Weight 129 kg 131.7 kg General appearance: PRESENT: no acute distress, cooperative, morbidly obese, well-developed Head exam: PRESENT: atraumatic, normocephalic Eye exam: PRESENT: conjunctiva pale. ABSENT: scleral icterus Ear exam: PRESENT: normal external ear exam. ABSENT: bleeding, drainage Mouth exam: PRESENT: moist, tongue midline Neck exam: PRESENT: other - Very large neck. ABSENT: carotid bruit, JVD, lymphadenopathy Respiratory exam: PRESENT: clear to auscultation alison, symmetrical, unlabored. ABSENT: prolonged expiratory phas, rales, rhonchi, tachypnea, wheezes Cardiovascular exam: PRESENT: RRR, +S1, +S2 GI/Abdominal exam: PRESENT: normal bowel sounds, soft, other - Pendulous abdomen. ABSENT: distended, guarding, tenderness Rectal exam: PRESENT: deferred Gentrourinary exam: PRESENT: indwelling catheter Neurological exam: PRESENT: alert, awake, oriented to person, oriented to place, oriented to time, oriented to situation, CN II-XII grossly intact Psychiatric exam: PRESENT: appropriate affect. ABSENT: agitated, anxious Focused psych exam: ABSENT: delusional, paranoid, restlessness Skin exam: PRESENT: dry, warm. ABSENT: rash Results Laboratory Results: 10/26/19 06:06 10/26/19 06:06 10/25/19 10/25/19 10/26/19 16:39 16:39 00:00 WBC 6.9 RBC 3.38 L Hgb 9.8 L Hct 29.7 L MCV 88 MCH 29.1 MCHC 33.1 RDW 16.0 H Plt Count 161 Seg Neutrophils % 85.7 H Carbonic Acid 1.53 H HCO3/H2CO3 Ratio 11:1 ABG pH 7.16 L* ABG pCO2 50.9 H ABG pO2 56.9 L ABG HCO3 17.8 L ABG O2 Saturation 81.2 L ABG Base Excess -10.7 FiO2 40% Sodium 130.9 L Potassium 4.4 Chloride 99 Carbon Dioxide 22 Anion Gap 10 BUN 73 H Creatinine 5.87 H Est GFR ( Amer) 9 L Glucose 122 H Calcium 7.3 L Magnesium Total Bilirubin 0.3 AST 30 Alkaline Phosphatase 61 Ammonia Total Protein 6.2 L Albumin 3.3 L 10/26/19 10/26/19 10/26/19 00:14 00:14 04:00 WBC RBC Hgb Hct MCV MCH MCHC RDW Plt Count Seg Neutrophils % Carbonic Acid 1.70 H HCO3/H2CO3 Ratio 12:1 ABG pH 7.20 L* ABG pCO2 56.5 H ABG pO2 98.2 ABG HCO3 21.3 ABG O2 Saturation 95.8 ABG Base Excess -6.9 FiO2 40% Sodium 131.9 L Potassium 4.3 Chloride 101 Carbon Dioxide 18 L Anion Gap 13 BUN 71 H Creatinine 5.29 H Est GFR ( Amer) 10 L Glucose 141 H Calcium 7.4 L Magnesium Total Bilirubin 0.3 AST 29 Alkaline Phosphatase 61 Ammonia < 8.7 L Total Protein 6.3 Albumin 3.4 L 10/26/19 10/26/19 06:06 06:06 WBC 6.9 RBC 3.07 L Hgb 9.0 L Hct 26.9 L MCV 88 MCH 29.4 MCHC 33.6 RDW 16.0 H Plt Count 167 Seg Neutrophils % 81.1 H Carbonic Acid HCO3/H2CO3 Ratio ABG pH ABG pCO2 ABG pO2 ABG HCO3 ABG O2 Saturation ABG Base Excess FiO2 Sodium 133.9 L Potassium 4.2 Chloride 108 H Carbon Dioxide 20 L Anion Gap 6 BUN 70 H Creatinine 4.59 H Est GFR ( Amer) 12 L Glucose 94 Calcium 7.1 L Magnesium 2.9 H Total Bilirubin 0.2 AST 24 Alkaline Phosphatase 55 Ammonia Total Protein 5.5 L Albumin 2.8 L 10/24/19 18:48 Catheterized Urine Urine Culture - Final NO GROWTH 2 DAYS Impressions: Foot X-Ray 10/24/19 17:08 IMPRESSION: 1. Slightly displaced fracture mid shaft proximal phalanx, left fifth toe. Ankle X-Ray 10/25/19 00:00 IMPRESSION: Lucency seen in one view of the distal fibula is more likely not a fracture. No definite fracture is seen. Chest X-Ray 10/25/19 00:00 IMPRESSION: Borderline cardiomegaly without pulmonary edema. Decreased pulmonary vascular congestion. Renal Ultrasound 10/25/19 00:00 IMPRESSION: 1. The examination is limited due to the patient's body habitus. 2. No hydronephrosis on the right. 3. Question of a nonobstructing calculus in the lower pole of the kidney. 4. Mild left renal pelvic dilatation suggested. 5. Tovar catheter within the urinary bladder. Assessment and Plan - Diagnosis (1) Acute respiratory failure with hypoxia and hypercapnia Is this a current diagnosis for this admission?: Yes Plan: 10/22/2019-patient came in with acute on chronic respiratory failure with hypoxia and hypercapnia. Patient is on BiPAP. Serial ABGs are done latest ABG shows pH of 7.16 with PCO2 62, PO2 47.7 with a bicarb of 21. Oxygen saturation of 71. She is on 32% oxygen. Patient is alert awake communicating well. Is to repeat the ABG later on today and 40% oxygen. Chest x-ray shows questionable infiltrates. Patient is receiving IV cefepime. 10/26/2019-the patient is still hypercapnic. I believe this is likely due to the hypoventilation. She should be on BiPAP at night as well as anytime that she is sleepy during the day. She may require predominantly BiPAP for the next day or 2 in an effort to clear her hypercapnia. (2) Acute kidney injury (nontraumatic) Is this a current diagnosis for this admission?: Yes Plan: 10/25/2019-patient's baseline creatinine is around 0.9 in 2018. On admission creatinine is 8.29. With IV fluids slightly improved to 8.09. Plan is to continue normal saline at 250 cc/h urinary output is good. Renal ultrasound was requested and a consultation with Dr. Josue Garcia is requested. 10/26/2019-the patient reports she had blood work at her primary care provider's office approximately 4 months ago. I have asked the community services manager to obtain these results. The patient is unaware of any chronic kidney disease. She reports that she has had kidney stones in the past. Renal function continues to improve. Etiology still not exactly known. (3) Acute encephalopathy Is this a current diagnosis for this admission?: Yes Plan: Metabolic encephalopathy secondary to acute kidney injury and hypoxic respiratory failure. Resolved. (4) Fracture of fifth toe, left, closed Qualifiers: Encounter type: initial encounter Qualified Code(s): S92.502A - Displaced unspecified fracture of left lesser toe(s), initial encounter for closed fracture Is this a current diagnosis for this admission?: Yes Plan: 10/25/2019-consultation with Dr. Garry Boyle was done recommendation is conservative management at this time. (5) Morbid obesity Is this a current diagnosis for this admission?: Yes Plan: 10/25/2019-patient BMI is more than 48 diet exercise weight loss lifestyle modifications discussed with the patient. (6) Sepsis Qualifiers: Sepsis type: sepsis due to unspecified organism Sepsis acute organ dysfunction status: with acute organ dysfunction Severe sepsis acute organ dysfunction type: acute renal failure Acute renal failure type: unspecified Severe sepsis shock status: without septic shock Qualified Code(s): A41.9 - Sepsis, unspecified organism; R65.20 - Severe sepsis without septic shock; N17.9 - Acute kidney failure, unspecified Is this a current diagnosis for this admission?: Yes Plan: 10/17/2019-patient came in with altered mental status, hypotensive requiring dopamine and IV fluids and also has acute kidney injury. May meet the criteria for sepsis. Plan is to continue IV fluids and IV cefepime. 10/26/2019-based on hypoxic respiratory failure, acute kidney injury, altered mental status and map less than 70 qualify the patient for sepsis. She has responded to fluids, antibiotics and oxygen therapy. Urine and blood cultures are negative thus far. (7) Obstructive sleep apnea Is this a current diagnosis for this admission?: Yes Plan: 10/26/2019-patient reports that she has been told she snores quite badly. She has been told she needs a sleep study. I explained that we do not do sleep studies in the hospital. I will obtain an overnight oximetry study which is likely going to prove hypoxia at night. If this is the case then we will order home oxygen. The patient must have a sleep study as an outpatient. (8) Morbid obesity with alveolar hypoventilation Is this a current diagnosis for this admission?: Yes Plan: 10/26/2019-BMI is 49.8. This is likely contributing to her respiratory failure. Will need aggressive weight loss management. Will most likely benefit from CPAP or BiPAP as above. - Plan Summary Summary: Patient will be admitted to [facility] where she will receive routine supportive and symptomatic cares. She will be maintained on BiPAP or other supplemental oxygen to maintain an adequate oxygen saturation level. She will receive high-volume IV fluids utilizing lactated Ringer solution. An orthopedic consultation with Dr. Boyle will be obtained. IV cefepime 2 g every 12 hours will be given empirically pending culture results. She will receive Ativan 1 mg IV every 4 hours as needed for anxiety or restlessness. She will receive morphine sulfate 2 to 4 mg IV every 2 hours as needed for pain control. Serial lactic acid levels will be obtained per the sepsis protocol. CBCs, metabolic profiles, magnesium levels and additional laboratory and/or radiographic evaluations will be obtained as needed. Patient will be on a cardiac diet. - Time Time Spent with patient: 25-34 minutes Medications reviewed and adjusted accordingly: Yes Anticipated Discharge Disposition: Home with Home Health Anticipated Discharge Timeframe: within 72 hours
[2019-10-26] MEDS: LEVALBUTEROL HCL NEB 0.63 MG/3 ML AMPUL NEB PRN (19:39)
[2019-10-27] MEDS: LEVALBUTEROL HCL NEB 1.25 MG/3 ML AMPUL NEB SCH ×3 (00:03→15:59)
[2019-10-27] MEDS: IPRATROPIUM BROMIDE 0.02% NEB 0.5 MG/2.5 ML AMPUL NEB SCH ×3 (00:03→16:00)
[2019-10-27] MEDS: MORPHINE SULFATE 10 MG/ML INJ IV PRN ×5 (01:34→21:30)
[2019-10-27] MEDS: NORMAL SALINE 1000 ML 1,000 ML IV PRN ×3 (03:49→21:26)
[2019-10-27] MEDS: PANTOPRAZOLE SODIUM 40 MG TABLET.DR PO SCH ×2 (05:34→17:54)
[2019-10-27 05:51] LABS: ABSOLUTE LYMPHOCYTES (AUTO) 0.5 10^3/uL (0.5-4.7); ABSOLUTE MONOCYTES (AUTO) 0.5 10^3/uL (0.1-1.4); ABSOLUTE NEUT (AUTO) 5.9 10^3/uL (1.7-8.2); ABSOLUTE RETICS # 0.095 10^6/uL (0.028-0.122); BASOPHILS % (AUTO) 0.7 % (0-2); EOSINOPHILS % (AUTO) 0.2 % (0-6); HEMATOCRIT 29.2 % (36.0-47.0); HEMOGLOBIN 9.9 g/dL (12.0-15.5); LYMPHOCYTES % (AUTO) 7.2 % (13-45); MEAN CORPUSCULAR HEMOGLOBIN 29.4 pg (27.0-33.4); MEAN CORPUSCULAR HGB CONC 33.9 g/dL (32.0-36.0); MEAN CORPUSCULAR VOLUME 87 fl (80-97); MONOCYTES % (AUTO) 7.4 % (3-13); PLATELET COUNT 193 10^3/uL (150-450); RED BLOOD COUNT 3.36 10^6/uL (3.72-5.28); RETICULOCYTE COUNT (AUTO) 2.82 % (0.66-2.85); SEGMENTED NEUTROPHILS % (AUTO) 84.5 % (42-78); TOTAL CELLS COUNTED % (AUTO) 100 %
[2019-10-27 06:08] LABS: ALBUMIN 3.3 g/dL (3.5-5.0); ANION GAP 8 (5-19); BLOOD UREA NITROGEN 53 mg/dL (7-20); CALCIUM 7.8 mg/dL (8.4-10.2); CARBON DIOXIDE 20 mmol/L (22-30); CHLORIDE 109 mmol/L (98-107); GLUCOSE 121 mg/dL (75-110); IRON(TIBC) 18.7 ug/dL (37-170); PHOSPHORUS 3.3 mg/dL (2.5-4.5)
[2019-10-27 06:15] LABS: POTASSIUM 3.7 mmol/L (3.6-5.0)
[2019-10-27 07:14] LABS: FOLATE > 20.00 ng/mL (>2.76)
[2019-10-27] MEDS: BUDESONIDE NEB 0.5 MG/2 ML AMPUL NEB SCH ×2 (08:26→19:37)
--- NOTE | 2019-10-27 10:39 | PDOC PROGRESS REPORT ---
Subjective Progress Note for:: 10/27/19 Subjective:: 49 year old female who presented to the emergency room via EMS, with a 2-day history of confusion. Patient was noted by her family to have progressively worsening mental confusion over the course of the last 2 days. The patient is confused and is not certain as to why she is in the emergency room. She admits falling 2 days ago and injuring both her of her feet which are still painful. She further admits having developed intermittent tremors of unknown etiology. The patient's complaints are somewhat uncertain as to reliability due to her acute confusion evidenced by variability in detail when the complaints are revisited. In the emergency room the patient was found to be hypoxic, hypotensive and acutely confused. She was treated via the sepsis protocol and admitted to the hospital for further evaluation treatment. 10/25/19-at the time of my examination patient alert awake oriented. Blood pressures are still low. Patient is receiving IV fluids and a dopamine drip. Latest creatinine is 8.0 patient's baseline creatinine is 0.9. Nephrology cons ult is requested with Dr. Garcia renal ultrasound is requested. Patient is receiving IV cefepime at this point time. 10/27/2019-patient is comfortably in the recliner communicating well. Expressing desire to go home. Latest ABG shows patient is still hypercapnic. Blood cultures and urine cultures are negative. Patient is receiving IV cefepime at this time. Creatinine improved from 8.0-3.07. Nephrology on board. Reason For Visit: SIRS,ACUTE RESPIRATORY FAILURE WITH HYPOXIA AND Physical Exam Vital Signs: Temp Pulse Resp BP Pulse Ox 97.9 F 83 20 106/55 L 93 10/27/19 04:00 10/27/19 07:00 10/27/19 04:00 10/27/19 04:00 10/27/19 04:05 Pulse Oximeter Nocturnal Start: 10/26/19 16:00 Freq: RTQ4 Status: Complete Protocol: Document 10/27/19 06:06 CMI (Rec: 10/27/19 06:06 CMI [id number]) Nocturnal Pulse Oximetry Equipment Usage Equipment Discontinued Continuous SpO2 Machine # 1 Intake & Output 10/26/19 10/27/19 10/28/19 06:59 06:59 06:59 Intake Total 100 3148 Output Total 3000 2850 Balance -2900 298 Weight 131.7 kg 128.4 kg General appearance: PRESENT: no acute distress, morbidly obese Head exam: PRESENT: atraumatic Eye exam: PRESENT: PERRLA Mouth exam: PRESENT: dry mucosa Neck exam: ABSENT: carotid bruit, JVD, lymphadenopathy, thyromegaly Respiratory exam: PRESENT: decreased breath sounds Cardiovascular exam: PRESENT: RRR. ABSENT: diastolic murmur, rubs, systolic murmur GI/Abdominal exam: PRESENT: normal bowel sounds, soft. ABSENT: distended, guarding, mass, organolmegaly, rebound, tenderness Rectal exam: PRESENT: deferred Extremities exam: PRESENT: full ROM. ABSENT: calf tenderness, clubbing, pedal edema Neurological exam: PRESENT: alert, awake, oriented to person, oriented to place, oriented to time, oriented to situation, CN II-XII grossly intact. ABSENT: motor sensory deficit Psychiatric exam: PRESENT: appropriate affect, normal mood. ABSENT: homicidal ideation, suicidal ideation Results Laboratory Results: 10/27/19 05:38 10/27/19 05:38 10/27/19 10/27/19 05:38 05:38 WBC 7.0 RBC 3.36 L Hgb 9.9 L Hct 29.2 L MCV 87 MCH 29.4 MCHC 33.9 RDW 16.0 H Plt Count 193 Seg Neutrophils % 84.5 H Retic Count (auto) 2.82 Sodium 136.6 L Potassium 3.7 Chloride 109 H Carbon Dioxide 20 L Anion Gap 8 BUN 53 H Creatinine 3.07 H Est GFR ( Amer) 19 L Glucose 121 H Calcium 7.8 L Phosphorus 3.3 Magnesium 2.8 H Iron 18.7 L TIBC 287 % Saturation 7 Ferritin 98.50 Albumin 3.3 L Vitamin B12 395.0 Folate > 20.00 10/24/19 18:48 Catheterized Urine Urine Culture - Final NO GROWTH 2 DAYS Impressions: Foot X-Ray 10/24/19 17:08 IMPRESSION: 1. Slightly displaced fracture mid shaft proximal phalanx, left fifth toe. Ankle X-Ray 10/25/19 00:00 IMPRESSION: Lucency seen in one view of the distal fibula is more likely not a fracture. No definite fracture is seen. Chest X-Ray 10/25/19 00:00 IMPRESSION: Borderline cardiomegaly without pulmonary edema. Decreased pulmonary vascular congestion. Renal Ultrasound 10/25/19 00:00 IMPRESSION: 1. The examination is limited due to the patient's body habitus. 2. No hydronephrosis on the right. 3. Question of a nonobstructing calculus in the lower pole of the kidney. 4. Mild left renal pelvic dilatation suggested. 5. Tovar catheter within the urinary bladder. Assessment and Plan - Diagnosis (1) Acute respiratory failure with hypoxia and hypercapnia Is this a current diagnosis for this admission?: Yes Plan: 10/22/2019-patient came in with acute on chronic respiratory failure with hypoxia and hypercapnia. Patient is on BiPAP. Serial ABGs are done latest ABG shows pH of 7.16 with PCO2 62, PO2 47.7 with a bicarb of 21. Oxygen saturation of 71. She is on 32% oxygen. Patient is alert awake communicating well. Is to repeat the ABG later on today and 40% oxygen. Chest x-ray shows questionable infiltrates. Patient is receiving IV cefepime. 10/26/2019-the patient is still hypercapnic. I believe this is likely due to the hypoventilation. She should be on BiPAP at night as well as anytime that she is sleepy during the day. She may require predominantly BiPAP for the next day or 2 in an effort to clear her hypercapnia. 10/27/19-patient is comfortably recliner communicating well. Expressing desire to go home. bicarb in the chemistry is 20. Patient is advised to continue to use BiPAP most of the day. (2) Acute kidney injury (nontraumatic) Is this a current diagnosis for this admission?: Yes Plan: 10/25/2019-patient's baseline creatinine is around 0.9 in 2018. On admission creatinine is 8.29. With IV fluids slightly improved to 8.09. Plan is to continue normal saline at 250 cc/h urinary output is good. Renal ultrasound was requested and a consultation with Dr. Josue Garcia is requested. 10/26/2019-the patient reports she had blood work at her primary care provider's office approximately 4 months ago. I have asked the unit clerk to obtain these results. The patient is unaware of any chronic kidney disease. She reports that she has had kidney stones in the past. Renal function continues to improve. Etiology still not exactly known. 10/27/2019-patient came in with a serum creatinine of 8.29 improved to 3.07. Mostly prerenal causes. Nephrology is on board. (3) Confusion Is this a current diagnosis for this admission?: No Plan: 10/25/2019-patient was brought to the emergency room with complaints of confusion, altered mental status at the time of examination patient alert awake communicating well. Acute metabolic encephalopathy resolved. (4) Fracture of fifth toe, left, closed Qualifiers: Encounter type: initial encounter Qualified Code(s): S92.502A - Displaced unspecified fracture of left lesser toe(s), initial encounter for closed fracture Is this a current diagnosis for this admission?: Yes Plan: 10/25/2019-consultation with Dr. Garry Boyle was done recommendation is conservative management at this time. (5) Sepsis Qualifiers: Sepsis type: sepsis due to unspecified organism Sepsis acute organ dysf unction status: with acute organ dysfunction Severe sepsis acute organ dy sfunction type: acute renal failure Acute renal failure type: unspecified Severe sepsis shock status: without septic shock Qualified Code(s): A41.9 - Sepsis, unspecified organism; R65.20 - Severe sepsis without septic shock; N17.9 - Acute kidney failure, unspecified Is this a current diagnosis for this admission?: Yes Plan: 10/17/2019-patient came in with altered mental status, hypotensive requiring dopamine and IV fluids and also has acute kidney injury. May meet the criteria for sepsis. Plan is to continue IV fluids and IV cefepime. 10/26/2019-based on hypoxic respiratory failure, acute kidney injury, altered mental status and map less than 70 qualify the patient for sepsis. She has responded to fluids, antibiotics and oxygen therapy. Urine and blood cultures are negative thus far. 10/27/19-blood cultures are negative so far. Patient is on IV Rocephin. Afebrile. WBC count is 7000. Plan is to continue IV antibiotics for at least another 48 hours. (6) Morbid obesity Is this a current diagnosis for this admission?: Yes Plan: 10/25/2019-patient BMI is more than 48 diet exercise weight loss lifestyle modifications discussed with the patient. (7) Obstructive sleep apnea Is this a current diagnosis for this admission?: Yes Plan: 10/26/2019-patient reports that she has been told she snores quite badly. She has been told she needs a sleep study. I explained that we do not do sleep studies in the hospital. I will obtain an overnight oximetry study which is likely going to prove hypoxia at night. If this is the case then we will order home oxygen. The patient must have a sleep study as an outpatient. - Plan Summary Summary: Patient will be admitted to [facility] where she will receive routine supportive and symptomatic cares. She will be maintained on BiPAP or other supplemental oxygen to maintain an adequate oxygen saturation level. She will receive high-volume IV fluids utilizing lactated Ringer solution. An orthopedic consultation with Dr. Boyle will be obtained. IV cefepime 2 g every 12 hours will be given empirically pending culture results. She will receive Ativan 1 mg IV every 4 hours as needed for anxiety or restlessness. She will receive morphine sulfate 2 to 4 mg IV every 2 hours as needed for pain control. Serial lactic acid levels will be obtained per the sepsis protocol. CBCs, metabolic profiles, magnesium levels and additional laboratory and/or radiographic evaluations will be obtained as needed. Patient will be on a cardiac diet. - Time Anticipated Discharge Disposition: Home, Self Care Anticipated Discharge Timeframe: within 48 hours
[2019-10-27] MEDS: GLYCOPYRROLATE 1 MG TABLET PO SCH ×2 (10:58→17:49)
[2019-10-27] MEDS ORDERED: ONDANSETRON HCL INJ/PF 4 MG/2 ML SDV IV PRN (11:07)
[2019-10-27] MEDS: FLUTICASONE NASAL SPRAY 50 MCG/SPRY 120 SPRAY/16 GM NASL SCH (11:24)
[2019-10-27] MEDS: CEFEPIME HCL 2 GM in DEXTROSE 5%-WATER 50 ML IV SCH ×2 (11:24→21:24)
[2019-10-27] MEDS: MULTIVITAMIN TABLET PO SCH (11:29)
[2019-10-27] MEDS ORDERED: ACETAMINOPHEN 650 MG SUPP.RECT PR PRN (11:30)
[2019-10-27] MEDS ORDERED: ACETAMINOPHEN 325 MG TABLET PO PRN (11:30)
--- NOTE | 2019-10-27 13:42 | PDOC PROGRESS REPORT ---
Subjective Progress Note for:: 10/27/19 Reason For Visit: Patient seen today in the hospital. She looks and feels better. She has got some complaints of pain around her fractured toes as well as low back. She is making good amounts of urine and her Tovar catheter has been removed. No nausea vomiting. Labs and medications were reviewed that shows improving renal numbers. Physical Exam Vital Signs: Temp Pulse Resp BP Pulse Ox 97.9 F 80 15 106/55 L 92 10/27/19 04:00 10/27/19 08:25 10/27/19 08:25 10/27/19 04:00 10/27/19 08:25 Pulse Oximeter Nocturnal Start: 10/26/19 16:00 Freq: RTQ4 Status: Complete Protocol: Document 10/27/19 06:06 CMI (Rec: 10/27/19 06:06 CMI [id number]) Nocturnal Pulse Oximetry Equipment Usage Equipment Discontinued Continuous SpO2 Machine # 1 Intake & Output 10/26/19 10/27/19 10/28/19 06:59 06:59 06:59 Intake Total 100 3148 985 Output Total 3000 2850 Balance -2900 298 985 Weight 131.7 kg 128.4 kg General appearance: PRESENT: no acute distress Respiratory exam: PRESENT: clear to auscultation alison, decreased breath sounds. ABSENT: crackles Cardiovascular exam: PRESENT: +S1, +S2 GI/Abdominal exam: PRESENT: normal bowel sounds, soft. ABSENT: organomegaly, tenderness Extremities exam: PRESENT: pedal edema Neurological exam: PRESENT: alert, awake, oriented to person, oriented to place Psychiatric exam: PRESENT: appropriate affect Results Laboratory Results: 10/27/19 05:38 10/27/19 05:38 10/27/19 10/27/19 05:38 05:38 WBC 7.0 RBC 3.36 L Hgb 9.9 L Hct 29.2 L MCV 87 MCH 29.4 MCHC 33.9 RDW 16.0 H Plt Count 193 Seg Neutrophils % 84.5 H Retic Count (auto) 2.82 Sodium 136.6 L Potassium 3.7 Chloride 109 H Carbon Dioxide 20 L Anion Gap 8 BUN 53 H Creatinine 3.07 H Est GFR ( Amer) 19 L Glucose 121 H Calcium 7.8 L Phosphorus 3.3 Magnesium 2.8 H Iron 18.7 L TIBC 287 % Saturation 7 Ferritin 98.50 Albumin 3.3 L Vitamin B12 395.0 Folate > 20.00 Impressions: Foot X-Ray 10/24/19 17:08 IMPRESSION: 1. Slightly displaced fracture mid shaft proximal phalanx, left fifth toe. Ankle X-Ray 10/25/19 00:00 IMPRESSION: Lucency seen in one view of the distal fibula is more likely not a fracture. No definite fracture is seen. Chest X-Ray 10/25/19 00:00 IMPRESSION: Borderline cardiomegaly without pulmonary edema. Decreased pulmonary vascular congestion. Renal Ultrasound 10/25/19 00:00 IMPRESSION: 1. The examination is limited due to the patient's body habitus. 2. No hydronephrosis on the right. 3. Question of a nonobstructing calculus in the lower pole of the kidney. 4. Mild left renal pelvic dilatation suggested. 5. Tovar catheter within the urinary bladder. Assessment & Plan - Diagnosis (1) Acute encephalopathy Is this a current diagnosis for this admission?: Yes Plan: Resolved. (2) Acute kidney injury (nontraumatic) Is this a current diagnosis for this admission?: Yes Plan: `Nonoliguric and improving to current guidelines. Continue on the same. I am signing off and please call on a as needed basis. (3) Fracture of fifth toe, left, closed Qualifiers: Encounter type: initial encounter Qualified Code(s): S92.502A - Displaced unspecified fracture of left lesser toe(s), initial encounter for closed fracture Is this a current diagnosis for this admission?: Yes Plan: As per Ortho. (4) Hypotension (arterial) Qualifiers: Hypotension type: unspecified hypotension type Qualified Code(s): I95.9 - Hypotension, unspecified Is this a current diagnosis for this admission?: Yes Plan: Improving. (5) Metabolic acidosis with respiratory acidosis Plan: Improving. Continue current guidelines. Monitor. (6) History of malignant neoplasm of cervix Plan: Status post surgery/complete hysterectomy followed by chemoradiation.
--- NOTE | 2019-10-27 14:36 | RADIOLOGY REPORT (SQ) ---
EXAM DESCRIPTION: CAROTID DOPPLER IMAGES COMPLETED DATE/TIME: 10/27/2019 2:27 pm REASON FOR STUDY: Lightheaded/dizzy. Whooshing sound in her ear. COMPARISON: None. TECHNIQUE: Grayscale ultrasound, Doppler velocity and spectra, and color Doppler images acquired of the extra-cranial carotid and vertebral arteries. Images stored on PACS. LIMITATIONS: None. FINDINGS: RIGHT CAROTID CCA Velocities: Within normal limits. ICA Velocities Peak systolic 0.75 m/s. End diastolic 0.22 m/s. Proximal ICA/CCA peak systolic ratio 1.3. Spectra normal. No significant plaque. LEFT CAROTID CCA Velocities: Within normal limits. ICA Velocities Peak systolic 0.59 m/s. End diastolic 0.14 m/s. Proximal ICA/CCA peak systolic ratio 1.8. Spectra normal. No significant plaque. VERTEBRAL ARTERIES: Antegrade flow. Normal waveforms. SUBCLAVIAN ARTERIES: Not imaged. OTHER: No other significant finding. IMPRESSION: NO HEMODYNAMICALLY SIGNIFICANT STENOSIS. COMMENT: Quality ID #[id number]: Velocity criteria are extrapolated from the diameter data as defined by t he Society of Radiologists in Ultrasound Consensus Conference. Radiology 2003: 229; 340-346. TECHNICAL DOCUMENTATION: JOB ID: [id number] 2010 [employer]- All Rights Reserved Reading location - IP/workstation name: [email or web address]
[2019-10-27] MEDS: MELATONIN 5 MG TABLET PO PRN (21:25)
[2019-10-28] MEDS: IPRATROPIUM BROMIDE 0.02% NEB 0.5 MG/2.5 ML AMPUL NEB SCH ×3 (00:20→16:26)
[2019-10-28] MEDS: LEVALBUTEROL HCL NEB 1.25 MG/3 ML AMPUL NEB SCH ×3 (00:20→16:26)
[2019-10-28] MEDS: MORPHINE SULFATE 10 MG/ML INJ IV PRN ×2 (00:36→09:06)
[2019-10-28 05:57] LABS: ABSOLUTE BASOPHILS # (AUTO) 0.1 10^3/uL (0.0-0.2); ABSOLUTE LYMPHOCYTES (AUTO) 0.6 10^3/uL (0.5-4.7); ABSOLUTE MONOCYTES (AUTO) 0.6 10^3/uL (0.1-1.4); ABSOLUTE NEUT (AUTO) 5.8 10^3/uL (1.7-8.2); BASOPHILS % (AUTO) 0.8 % (0-2); EOSINOPHILS % (AUTO) 0.4 % (0-6); HEMATOCRIT 28.3 % (36.0-47.0); HEMOGLOBIN 9.7 g/dL (12.0-15.5); LYMPHOCYTES % (AUTO) 7.9 % (13-45); MEAN CORPUSCULAR HEMOGLOBIN 29.6 pg (27.0-33.4); MEAN CORPUSCULAR HGB CONC 34.3 g/dL (32.0-36.0); MEAN CORPUSCULAR VOLUME 86 fl (80-97); MONOCYTES % (AUTO) 8.3 % (3-13); PLATELET COUNT 176 10^3/uL (150-450); RED BLOOD COUNT 3.27 10^6/uL (3.72-5.28); RED CELL DISTRIBUTION WIDTH 16.1 % (11.5-14.0); SEGMENTED NEUTROPHILS % (AUTO) 82.6 % (42-78); TOTAL CELLS COUNTED % (AUTO) 100 %
[2019-10-28 06:18] LABS: ALBUMIN 3.3 g/dL (3.5-5.0); ALKALINE PHOSPHATASE 61 U/L (38-126); ANION GAP 7 (5-19); ASPARTATE AMINO TRANSFERASE 21 U/L (14-36); BILIRUBIN,DIRECT 0.1 mg/dL (0.0-0.4); BILIRUBIN,TOTAL 0.5 mg/dL (0.2-1.3); BLOOD UREA NITROGEN 39 mg/dL (7-20); CARBON DIOXIDE 21 mmol/L (22-30); CHLORIDE 109 mmol/L (98-107); GLUCOSE 121 mg/dL (75-110); POTASSIUM 3.5 mmol/L (3.6-5.0); TOTAL PROTEIN 6.1 g/dL (6.3-8.2)
[2019-10-28] MEDS: PANTOPRAZOLE SODIUM 40 MG TABLET.DR PO SCH (06:30)
[2019-10-28] MEDS: BUDESONIDE NEB 0.5 MG/2 ML AMPUL NEB SCH (08:03)
[2019-10-28] MEDS: FLUTICASONE NASAL SPRAY 50 MCG/SPRY 120 SPRAY/16 GM NASL SCH (09:06)
[2019-10-28] MEDS: CEFEPIME HCL 2 GM in DEXTROSE 5%-WATER 50 ML IV SCH (09:06)
[2019-10-28] MEDS: MULTIVITAMIN TABLET PO SCH (09:07)
[2019-10-28] MEDS: GLYCOPYRROLATE 1 MG TABLET PO SCH (09:07)
--- NOTE | 2019-10-28 09:56 | XCELERA REPORT ---
[address] [address] Transthoracic Echocardiogram Report Name: JOSÉ LUIS JAVED Age: 49 yrs Gender: Female : 1970 Patient Status: Inpatient Patient Location: [address] [place], [place] [id number] Study Date: 10/27/2019 09:28 AM Height: 64 in Weight: 290 lb BSA: 2.3 m2 Procedure: A complete two-dimensional transthoracic echocardiogram was performed (2D, M-mode, spectral and color flow Doppler). The study was technically adequate with some images being suboptimal in quality. Reason For Study: Cardiomegaly with possible failure Ordering Physician: YANNICK GOODE Performed By: Gladys Moreland Interpretation Summary Difficult study due to pt. body habitus The left ventricle is grossly normal size. Left ventricular systolic function is normal. The Ejection Fraction estimate is 60-65%. Doppler measurements suggest normal left ventricular diastolic function. No regional wall motion abnormalities noted. There is no thrombus. Aortic root is borderline dilated. Trace to mild TR. Possible left pleural effusion, please correlate clinically and consider repeating chest radiograph. MMode/2D Measurements & Calculations RVDd: 2.8 cm LVIDd: 6.0 cm FS: 33.1 % Ao root diam: 3.6 cm IVSd: 1.3 cm LVIDs: 4.0 cm EDV(Teich): 182.9 ml Ao root area: 10.1 cm2 LVPWd: 0.84 cm ESV(Teich): 71.8 ml EF(Teich): 60.7 % Doppler Measurements & Calculations MV E max evaristo: MV dec slope: Ao V2 max: LV V1 max P.9 cm/sec 845.5 cm/sec2 190.2 cm/sec 7.5 mmHg MV A max evaristo: MV dec time: 0.15 secAo max PG: LV V1 max: 112.1 cm/sec 14.5 mmHg 137.4 cm/sec MV E/A: 1.1 PA V2 max: TR max evaristo: 133.5 cm/sec 297.9 cm/sec PA max P.1 mmHg TR max P.5 mmHg Left Ventricle The left ventricle is grossly normal size. Left ventricular systolic function is normal. The Ejection Fraction estimate is 60-65%. Doppler measurements suggest normal left ventricular diastolic function. No regional wall motion abnormalities noted. There is no thrombus. Right Ventricle The right ventricle is grossly normal size. The right ventricular systolic function is normal. Atria The right atrium is normal. The left atrium is mildly dilated. The interatrial septum is intact with no evidence for an atrial septal defect. Mitral Valve The mitral valve is normal in structure and function. There is a trace amount of mitral regurgitation. Aortic Valve The aortic valve is not well visualized secondary to technical limitations. Cannot determine the number of cusps. No aortic regurgitation is present. Tricuspid Valve The tricuspid is normal in structure and function. There is a trace to mild amount of tricuspid regurgitation. Pulmonic Valve The pulmonic valve is not well visualized. There is no pulmonic valvular regurgitation. Great Vessels Aortic root is borderline dilated. Effusions There is no pericardial effusion. Possible left pleural effusion, please correlate clinically and consider repeating chest radiograph. : YANNICK GOODE, Sarath
[2019-10-28] MEDS ORDERED: SERTRALINE HCL 50 MG TABLET PO SCH (10:00)
[2019-10-28 11:01] LABS: ARTERIAL BLOOD BASE EXCESS -3.5 mmol/L; ARTERIAL BLOOD H2CO3 0.97 mmol/L (1.05-1.35); ARTERIAL BLOOD HCO3 20.2 mmol/L (20-24); ARTERIAL BLOOD O2 SATURATION 94.9 % (94-98); ARTERIAL BLOOD PCO2 32.3 mmHg (35-45); ARTERIAL BLOOD PH 7.42 (7.35-7.45); ARTERIAL BLOOD PO2 72.1 mmHg (80-100); ARTERIAL BLOOD TOTAL CO2 21.2 mmol/L (21-25)
[2019-10-28 11:02] LABS: ARTERIAL BLOOD FIO2 FR 2 ROOM AIR
--- NOTE | 2019-10-28 12:29 | PDOC PROGRESS REPORT ---
Subjective Progress Note for:: 10/28/19 Subjective:: JOSÉ LUIS JAVED is a 49 year old female who presented to the emergency room via EMS, with a 2-day history of confusion. Patient was noted by her family to have progressively worsening mental confusion over the course of the last 2 days. The patient is confused and is not certain as to why she is in the emergency room. She admits falling 2 days ago and injuring both her of her feet which are still painful. She further admits having developed intermittent tremors of unknown etiology. The patient's complaints are somewhat uncertain as to reliability due to her acute confusion evidenced by variability in detail when the complaints are revisited. In the emergency room the patient was found to be hypoxic, hypotensive and acutely confused. She was treated via the sepsis protocol and admitted to the hospital for further evaluation treatment. 10/28/2019. No acute events overnight. Patient currently resting in no apparent distress, alert and oriented x4 answering questions appropriately, cooperative with physical examination. Patient gets winded easily with exertion, has been able to walk to the restroom without oxygen, very anxious to go home. Denies any fever, chest pain, nausea, vomiting, diarrhea, constipation or any urinary symptoms. Complaining of persistent left fifth toe and right ankle pain. Patient could be DC'd home if her oxygen supplies are ready today. Renal function is stable and nephrology is recommending outpatient follow-up. Reason For Visit: SIRS,ACUTE RESPIRATORY FAILURE WITH HYPOXIA AND Physical Exam Vital Signs: Temp Pulse Resp BP Pulse Ox 98.2 F 65 15 170/84 H 96 10/28/19 07:58 10/28/19 08:00 10/28/19 08:00 10/28/19 07:58 10/28/19 08:00 Pulse Oximeter Nocturnal Start: 10/26/19 16:00 Freq: RTQ4 Status: Complete Protocol: Document 10/27/19 06:06 CMI (Rec: 10/27/19 06:06 CMI [id number]) Nocturnal Pulse Oximetry Equipment Usage Equipment Discontinued Continuous SpO2 Machine # 1 Intake & Output 10/27/19 10/28/19 10/29/19 06:59 06:59 06:59 Intake Total 3148 3191 7 Output Total 2850 200 Balance 298 2991 7 Weight 128.4 kg 130.9 kg Results Laboratory Results: 10/28/19 05:38 10/28/19 05:38 10/28/19 10/28/19 10/28/19 05:38 05:38 10:36 WBC 7.0 RBC 3.27 L Hgb 9.7 L Hct 28.3 L MCV 86 MCH 29.6 MCHC 34.3 RDW 16.1 H Plt Count 176 Seg Neutrophils % 82.6 H Carbonic Acid 0.97 L HCO3/H2CO3 Ratio 20:1 ABG pH 7.42 ABG pCO2 32.3 L ABG pO2 72.1 L ABG HCO3 20.2 ABG O2 Saturation 94.9 ABG Base Excess -3.5 FiO2 FR 2 ROOM AIR Sodium 136.9 L Potassium 3.5 L Chloride 109 H Carbon Dioxide 21 L Anion Gap 7 BUN 39 H Creatinine 2.36 H Est GFR ( Amer) 26 L Glucose 121 H Calcium 8.0 L Magnesium 2.4 H Total Bilirubin 0.5 AST 21 Alkaline Phosphatase 61 Total Protein 6.1 L Albumin 3.3 L Impressions: Foot X-Ray 10/24/19 17:08 IMPRESSION: 1. Slightly displaced fracture mid shaft proximal phalanx, left fifth toe. Ankle X-Ray 10/25/19 00:00 IMPRESSION: Lucency seen in one view of the distal fibula is more likely not a fracture. No definite fracture is seen. Chest X-Ray 10/25/19 00:00 IMPRESSION: Borderline cardiomegaly without pulmonary edema. Decreased pulmonary vascular congestion. Renal Ultrasound 10/25/19 00:00 IMPRESSION: 1. The examination is limited due to the patient's body habitus. 2. No hydronephrosis on the right. 3. Question of a nonobstructing calculus in the lower pole of the kidney. 4. Mild left renal pelvic dilatation suggested. 5. Tovar catheter within the urinary bladder. Carotid Doppler Study 10/27/19 00:00 IMPRESSION: NO HEMODYNAMICALLY SIGNIFICANT STENOSIS. Assessment and Plan - Diagnosis (1) Acute exacerbation of chronic obstructive airways disease Is this a current diagnosis for this admission?: Yes Plan: Much improved. SPO2 WNL on 3 L nasal cannula. Former tobacco abuser, quit 3 years ago Patient reports history of chronic cough and recurrent bronchitis with shortness of breath at baseline. Patient has never been evaluated by a crnp. Patient may benefit from supplemental oxygen, LABA, LABA and pulmonology follow- up. (2) Acute encephalopathy Is this a current diagnosis for this admission?: Yes Plan: Resolved. At baseline. Alert and oriented x4. Multifactorial. Likely due to hypoxemic respiratory failure complicated by SHAVON, chronic opioid dependency and amphetamine abuse. Urine toxicology positive for opiates and amphetamines. (3) Acute kidney injury (nontraumatic) Is this a current diagnosis for this admission?: Yes Plan: Prerenal most likely due to low p.o. intake and hypotension. Much improved since admission, not at baseline. Nonoliguric. Denies any uremic symptoms. Nephrology consulted, recommendations is to follow-up as outpatient. Nephrology has signed off. Continue cautious volume resuscitation guided by volume status. Monitor ins and outs, monitor electrolytes, avoid nephrotoxic meds. (4) Acute respiratory failure with hypoxia and hypercapnia Is this a current diagnosis for this admission?: Yes Plan: Multifactorial, likely due to acute on chronic COPD exacerbation, obstructive sleep apnea, opiate dependency Continue supplemental oxygen, LABA, LABA, ICS. (5) Fracture of fifth toe, left, closed Qualifiers: Encounter type: initial encounter Qualified Code(s): S92.502A - Displaced unspecified fracture of left lesser toe(s), initial encounter for closed fracture Is this a current diagnosis for this admission?: Yes Plan: Orthopedic surgery on board. No intervention planned. Conservative management recommended. Please refer to note. (6) Morbid obesity Is this a current diagnosis for this admission?: Yes Plan: BMI 49.5. Diet and lifestyle modification recommended. (7) Obstructive sleep apnea Is this a current diagnosis for this admission?: Yes Plan: ABG shows persistent hypoxemia and hypercarbia. Patient will greatly benefit from outpatient nocturnal polysomnography. Patient will also benefit from weight loss and bariatric surgery. Will DC patient on supplemental oxygen to follow up with pulmonology for outpatient nocturnal polysomnography (8) Pain and swelling of right ankle Is this a current diagnosis for this admission?: Yes Plan: Orthopedic surgery on board. No intervention planned. Conservative management recommended. Please refer to note. (9) Sepsis Qualifiers: Sepsis type: sepsis due to unspecified organism Sepsis acute organ dysfunction status: with acute organ dysfunction Severe sepsis acute organ dysfunction type: acute renal failure Acute renal failure type: unspecified Severe sepsis shock status: without septic shock Qualified Code(s): A41.9 - Sepsis, unspecified organism; R65.20 - Severe sepsis without septic shock; N17.9 - Acute kidney failure, unspecified Is this a current diagnosis for this admission?: Yes Plan: Resolved. Patient presented with hypotension, leukocytosis, normal lactic acid, will start on dopamine drip and empiric IV antibiotics. Vitals WNL. All cultures negative. (10) Opioid dependence with current use Is this a current diagnosis for this admission?: Yes Plan: History of DJD, on chronic fentanyl patch. Outpatient PCP and pain management follow-up. - Time Time Spent with patient: 25-34 minutes Smoking Cessation Education: 3 to 10 minutes Medications reviewed and adjusted accordingly: Yes Anticipated Discharge Disposition: Home, Self Care Anticipated Discharge Timeframe: within 24 hours
[2019-10-28 12:57] VITALS: BP 163/86
[2019-10-28] MEDS ORDERED: METOPROLOL SUCCINATE 50 MG TAB.SR.24H PO SCH (13:00)
[2019-10-28] MEDS ORDERED: AMLODIPINE BESYLATE 5 MG TABLET PO SCH (13:15)
[2019-10-28] MEDS ORDERED: FLUTICASONE/VILANTEROL 100-25 MCG/DOSE IH SCH (15:00)
[2019-10-28] MEDS ORDERED: AMLODIPINE BESYLATE 5 MG TABLET PO ONE (15:20)
[2019-10-28] MEDS ORDERED: LORAZEPAM 1 MG TABLET PO PRN (15:21)
[2019-10-28] MEDS ORDERED: METOPROLOL SUCCINATE 50 MG TAB.SR.24H PO ONE (15:45)
[2019-10-29] MEDS ORDERED: METOPROLOL SUCCINATE 50 MG TAB.SR.24H PO SCH (10:00)
[2019-10-29] MEDS ORDERED: METOPROLOL SUCCINATE 50 MG TAB.SR.24H PO ONE (15:21)
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
== END 2019-10-28 17:25 | disposition left against medical advice (07) | DRG 189 ==
LOC: ER 16:41 → EH 19:25 → 3W 22:09
PROVIDERS: ADMIT Emergency Medicine; ATTEND Internal Medicine
DX: J96.22 Acute and chronic respiratory failure with hypercapnia (principal); G93.41 Metabolic encephalopathy; N17.9 Acute kidney failure, unspecified; E87.1 Hypo-osmolality and hyponatremia; F11.20 Opioid dependence, uncomplicated; Z68.42 Body mass index [BMI] 45.0-49.9, adult; E66.2 Morbid (severe) obesity with alveolar hypoventilation; E87.4 Mixed disorder of acid-base balance; J44.1 Chronic obstructive pulmonary disease with (acute) exacerbation; F15.10 Other stimulant abuse, uncomplicated; F41.1 Generalized anxiety disorder; S92.512A Displaced fracture of proximal phalanx of left lesser toe(s), initial encounter for closed fracture; I95.9 Hypotension, unspecified; G89.4 Chronic pain syndrome; W19.XXXA Unspecified fall, initial encounter; Y92.9 Unspecified place or not applicable; Z91.81 History of falling; Z87.891 Personal history of nicotine dependence; Z85.41 Personal history of malignant neoplasm of cervix uteri; Z90.710 Acquired absence of both cervix and uterus; Z92.21 Personal history of antineoplastic chemotherapy; Z87.442 Personal history of urinary calculi; Z82.3 Family history of stroke
CPT/HCPCS: 36415; 36600; 51702; 71045; 76770; 80053; 80069; 80307; 81001; 82140; 82607; 82728; 82746; 82803; 82962; 83540; 83550; 83605; 83735; 85025; 85045; 85610; 87040; 87070; 87086; 93005; 93010; 93306; 93880; 94640; 94660; 94762; 96361; 96374; 99291; J0692; J2270; J2550; J2920; J2930; J3490; J7030; J7060; J7120

== ENCOUNTER → 2019-11-29 | Outpatient (CLI) | payer OTHER ==
[2019-11-29 16:26] LABS: APPEARANCE,URINE SLIGHTLY-CLOUDY; BILIRUBIN,URINE NEGATIVE (NEGATIVE); COLOR,URINE YELLOW; GLUCOSE, URINE NEGATIVE (NEGATIVE); KETONES,URINE NEGATIVE (NEGATIVE); LEUKOCYTE ESTERASE,URINE MODERATE (NEGATIVE); NITRITE,URINE NEGATIVE (NEGATIVE); PROTEIN,URINE 30 mg/dL (NEGATIVE); URINE SPECIFIC GRAVITY 1.019; UROBILINOGEN,URINE NEGATIVE mg/dL (<2.0)
[2019-11-29 16:27] LABS: ABSOLUTE BASOPHILS # (AUTO) 0.1 10^3/uL (0.0-0.2); ABSOLUTE EOSINOPHILS # (AUTO) 0.1 10^3/uL (0.0-0.6); ABSOLUTE LYMPHOCYTES (AUTO) 1.5 10^3/uL (0.5-4.7); ABSOLUTE MONOCYTES (AUTO) 0.6 10^3/uL (0.1-1.4); ABSOLUTE NEUT (AUTO) 5.3 10^3/uL (1.7-8.2); BASOPHILS % (AUTO) 0.8 % (0-2); EOSINOPHILS % (AUTO) 1.5 % (0-6); HEMATOCRIT 34.8 % (36.0-47.0); HEMOGLOBIN 11.4 g/dL (12.0-15.5); LYMPHOCYTES % (AUTO) 19.5 % (13-45); MEAN CORPUSCULAR HEMOGLOBIN 27.7 pg (27.0-33.4); MEAN CORPUSCULAR HGB CONC 32.8 g/dL (32.0-36.0); MEAN CORPUSCULAR VOLUME 84 fl (80-97); MONOCYTES % (AUTO) 7.5 % (3-13); PLATELET COUNT 240 10^3/uL (150-450); RED BLOOD COUNT 4.13 10^6/uL (3.72-5.28); RED CELL DISTRIBUTION WIDTH 15.5 % (11.5-14.0); SEGMENTED NEUTROPHILS % (AUTO) 70.7 % (42-78); TOTAL CELLS COUNTED % (AUTO) 100 %; WHITE BLOOD COUNT 7.5 10^3/uL (4.0-10.5)
[2019-11-29 16:46] LABS: ALBUMIN 4.4 g/dL (3.5-5.0); ALKALINE PHOSPHATASE 100 U/L (38-126); ANION GAP 10 (5-19); ASPARTATE AMINO TRANSFERASE 21 U/L (14-36); BILIRUBIN,DIRECT 0.4 mg/dL (0.0-0.4); BILIRUBIN,TOTAL 0.5 mg/dL (0.2-1.3); BLOOD UREA NITROGEN 23 mg/dL (7-20); CALCIUM 9.3 mg/dL (8.4-10.2); CARBON DIOXIDE 29 mmol/L (22-30); CHLORIDE 102 mmol/L (98-107); GLUCOSE 99 mg/dL (75-110); POTASSIUM 3.6 mmol/L (3.6-5.0); TOTAL PROTEIN 7.5 g/dL (6.3-8.2)
== END ==
LOC: OD 15:16
PROVIDERS: ATTEND Internal Medicine Nephrology
DX: N17.9 Acute kidney failure, unspecified (principal)
CPT/HCPCS: 36415; 80053; 81001; 83735; 85025

== ENCOUNTER → 2020-02-15 | Outpatient (CLI) | payer OTHER ==
--- NOTE | 2020-02-16 11:13 | RADIOLOGY REPORT (SQ) ---
EXAM DESCRIPTION: U/S RETROPERITON (RENAL/AORTA) IMAGES COMPLETED DATE/TIME: 02/15/2020 3:51 pm REASON FOR STUDY: (R93.41)ABN RADLGC FIND ON DX IMAGING RENAL PELV, URETER, OR BLADDER R93.41 ABN R ADLGC FIND ON DX IMAGING RENAL PELV, URETER, OR COMPARISON: None. TECHNIQUE: Dynamic and static grayscale images acquired of the kidneys and bladder and recorded on P ACS. Additional selected color Doppler and spectral images recorded. LIMITATIONS: None. FINDINGS: RIGHT KIDNEY: Normal size. Normal echogenicity. No solid or suspicious masses. No hydronep hrosis. No calcifications. LEFT KIDNEY: Normal size. Normal echogenicity. No solid or suspicious masses. No hydronephrosis. 7 x 6 x 2 mm lower pole calcification. BLADDER: The bladder is empty and not well seen. OTHER FINDINGS: No other significant finding. IMPRESSION: There is a nonobstructing intrarenal calculus in the lower pole of the left kidney. TECHNICAL DOCUMENTATION: JOB ID: [id number] 2010 [employer]- All Rights Reserved Reading location - IP/workstation name: [email or web address]
== END ==
LOC: RAD 15:14
PROVIDERS: ATTEND Internal Medicine Nephrology
DX: N20.0 Calculus of kidney (principal)
CPT/HCPCS: 76770